=== PATIENT | male | born 1960 | race Caucasian/White ===

== ENCOUNTER → 2018-05-16 13:58 | Outpatient (POV) | payer OTHER, SELFPAY | PROVIDERS: Visit Provider Nurse Practitioner Acute Care | DX: Z00.00 Encounter for general adult medical examination without abnormal findings (principal) ==

== ENCOUNTER → 2018-08-15 10:40 | Outpatient (POV) | payer BC, SELFPAY | PROVIDERS: Visit Provider Nurse Practitioner Acute Care | DX: Z00.00 Encounter for general adult medical examination without abnormal findings (principal) ==

== ENCOUNTER → 2019-04-17 12:25 | Outpatient (CLI) | payer BC, SELFPAY ==
--- NOTE | 2019-04-17 | CA_ITS ---
APPROVED REPORT Exam: Exercise Treadmill Technologist: Shellie Lopez Ht: 6 ft 0 in Wt: 150 lbs BSA: 1.88 m2 HR: 65 bpm BP: 145/89 mmHg Indications: CP, SOA Medical History Medications: Levothyroxine,,,,, Metoprolol,,,,, CitruCEL,,,,, Allergies: NSAID, Pseudophedrine, Joann Cardiac Risk Factors: HTN Stress Test Details Test: Tito HR Resting HR: 78 bpm Max Heart Rate (APMHR): 159 bpm Max HR Achieved: 156 bpm Target HR (85% APMHR): 135 bpm % of APMHR: 98 Recovery HR: 102 bpm BP Resting BP: 145/89 mmHg Max BP: 168/80 mmHg Recovery BP: 158.0/69.0 mmHg BP response to stress: Normal blood pressure response to stress. ECG Resting ECG: Sinus Rhythm Clinical Reason for Termination: Leg fatigue Stress Symptoms: Leg Fatigue Exercise duration: 09:44 min Highest Stage Achieved: Stage 3: 3.4 mph at 14% grade. Exercise capacity: 10.1 METs Stress ECG Conclusion Tito Protocol Portion completed. Exercised for 09:44. Stopped for leg fatigue. Stress Echocardiagram. Symptoms: No CP, or SOB. Leg fatigue during peak exercise. Arrhythmias/Ectopy: Occ PVC, Occ PAC, and 3 beat run of Atrial Tach. ST-T Changes: Less than 1.5mm ST Depression. No images. 1) Stress Echo 2) Good exercise capacity 3)Apporiate BP response 4) Occ PVC, Occ PAC, and 3 beat AT. Test Summary REST . . . . . . . Standing REST . . . . . . . Sitting REST 13:40 0.0 0.0 78 . 145/ 89 . . Stage 1 01:00 10.0 1.7 89 . . . . Stage 1 02:00 10.0 1.7 96 . . . . Stage 1 03:00 10.0 1.7 100 . 164/ 88 . . Stage 2 01:00 12.0 2.5 108 . . . . Stage 2 02:00 12.0 2.5 114 . . . . Stage 2 03:00 12.0 2.5 120 . 156/ 80 . . Stage 3 01:00 14.0 3.4 129 . . . . Stage 3 02:00 14.0 3.4 141 . . . . Stage 3 03:00 14.0 3.4 148 . . . . Stage 4 00:44 16.0 0.0 155 . 168/ 80 . Stop exercise at 09:44 RECOVERY 01:00 0.0 0.0 124 . . . . RECOVERY 02:00 0.0 0.0 107 . . . . RECOVERY 03:00 0.0 0.0 101 . 158/ 69 . . RECOVERY 04:00 0.0 0.0 96 . 158/ 69 . . RECOVERY 05:00 0.0 0.0 97 . 154/ 67 . . RECOVERY 06:00 0.0 0.0 100 . 154/ 67 . . RECOVERY 07:00 0.0 0.0 95 . 134/ 84 . . RECOVERY 07:26 0.0 0.0 95 . 134/ 84 . . Electronically signed by : Dennis Rai, 04/19/2019 05:55:27
--- NOTE | 2019-04-17 12:32 | CA_ITS ---
APPROVED REPORT EXAM: Comprehensive 2D, Doppler, and color-flow Echocardiogram Geological Technical Officer: Nisha Crawford RDCS Ht: 6 ft 0 in Wt: 150lbs BSA: 1.88 BP: 158/85 mmHg Indications: Shortness of Breath R06.02, Chest Pain R07.89 STRESS ECHO Echo Findings The Pre-Stress Echocardiogram showed normal left ventricular contractility with an estimated Ejection Fraction of about 50-55%. The Post-Stress Echocardiogram showed normal left ventricular contractility with an estimated Ejection Fraction of about 65-70%. Conclusion 1. The EKG portion of the exercise stress echo is negative for ischemia. 2. No echocardiographic evidence of segmental wall motion abnormality with exercise to suggest underlying ischemic heart disease. 3. Preserved left ventricular systolic function.
== END ==
PROVIDERS: PCP Internal Medicine; Visit Provider Urology
DX: R06.09 Other forms of dyspnea; R07.89 Other chest pain; R00.2 Palpitations; E89.0 Postprocedural hypothyroidism; G47.9 Sleep disorder, unspecified; R40.0 Somnolence
CPT/HCPCS: 93017; 93350

== ENCOUNTER → 2019-04-20 11:42 | Outpatient (CLI) | payer BC, SELFPAY | PROVIDERS: PCP Family Medicine; Visit Provider Internal Medicine Cardiovascular Disease | DX: R00.2 Palpitations (principal) | CPT/HCPCS: 93270 ==

== ENCOUNTER → 2020-03-25 10:06 | Outpatient (POV) | payer BC, SELFPAY | PROVIDERS: Visit Provider Nurse Practitioner Family | DX: Z00.00 Encounter for general adult medical examination without abnormal findings (principal) ==

== ENCOUNTER → 2020-04-02 15:22 | Outpatient (POV) | payer BC, SELFPAY | PROVIDERS: Visit Provider Dermatology | DX: Z00.00 Encounter for general adult medical examination without abnormal findings (principal) ==

== ENCOUNTER 2020-05-28 11:43 | Emergency (ER) | payer BC, SELFPAY ==
[2020-05-28] VITALS (8 sets, daily range): BP systolic 122–142; BP diastolic 80–90; PULSE 74–87; RESP 16; TEMP 36.9; O2SAT 97–100; BMI 20.3
--- NOTE | 2020-05-28 11:40 | ECG_ITS ---
APPROVED REPORT Exam: Resting ECG HR:85 bpm ECG Measurements Heart Rate 85 AXES [place] 128 P 81 QRSd 88 QRS 81 QT 360 T 61 QTc 428 Conclusion Normal sinus rhythm with sinus arrhythmia Possible Left atrial enlargement Borderline ECG Electronically signed by : Nacho Draper, 05/29/2020 11:57:55
--- NOTE | 2020-05-28 11:47 | HMH.EDGENADL ---
ED Disposition Clinical Impression: Chest pain Qualifiers: Chest pain type: unspecified Qualified Code(s): R07.9 - Chest pain, unspecified Disposition: Home, Self-Care Condition on Discharge: Good Instructions: DI for Atypical Chest Pain Additional Instructions: Please report tomorrow to cardiology office to be worked into the schedule. Show up at 9 AM and you will be seen at some point throughout the morning/afternoon. Immediately report back to our emergency department if recurrent symptoms prior to that time. Take Atarax as prescribed. Prescriptions: hydrOXYzine HCL [Hydroxyzine HCl] 10 mg PO BID PRN 7 Days #14 tab PRN Reason: Anxiety Prescription Printed Referrals: Nacho Davidson MD [Primary Care Provider] - Navjot Farrell MD [Staff Physician] - - Critical Care Critical Care Time: No Attestation: On , the high probability of a clinically significant, sudden or life threatening deterioration of the following system(s) required my full and direct attention, intervention and personal management. The time I documented below is in addition to time spent performing reported procedures but includes the following listed in this critical care notation. Medical Decision Making - Medical Records Medical records reviewed: Yes: I reviewed the patient's medical records. - Ran Inquiry Pt receiving controlled substance: No Vital Signs: 05/28/20 11:44 05/28/20 12:11 05/28/20 12:30 Temperature 98.5 F Temperature Source Oral Pulse Rate [Right] 76 81 80 Respiratory Rate 16 Blood Pressure [Right Arm] 135/88 136/90 142/90 H Blood Pressure Mean [Right Arm] 103 105 107 Blood Pressure Source [Right Arm] Automatic Cuff Automatic Cuff Automatic Cuff Blood Pressure Position [Right Arm] Sitting Sitting Sitting 02 Sat by Pulse Oximetry 98 100 97 Oxygen Delivery Method Room Air Room Air Room Air 05/28/20 13:07 05/28/20 14:10 05/28/20 15:33 Temperature Temperature Source Pulse Rate [Right] 85 74 83 Respiratory Rate Blood Pressure [Right Arm] 137/87 122/89 124/86 Blood Pressure Mean [Right Arm] 103 100 98 Blood Pressure Source [Right Arm] Automatic Cuff Automatic Cuff Automatic Cuff Blood Pressure Position [Right Arm] Sitting Sitting Sitting 02 Sat by Pulse Oximetry 99 98 98 Oxygen Delivery Method Room Air Room Air Room Air - Lab Data Lab Results 05/28/20 11:50: WBC 6.1, RBC 5.03, Hgb 16.4, Hct 46.7, MCV 92.9, MCH 32.6 H, MCHC 35.1, RDW 13.3, Plt Count 183, MPV 8.5, Neut % (Auto) 70.2, Lymph % (Auto) 20.9, Zavala % (Auto) 8.2, Eos % (Auto) 0.4, Baso % (Auto) 0.4, Neut # (Auto) 4.3, Lymph # (Auto) 1.3, Zavala # (Auto) 0.5, Eos # (Auto) 0.0, Baso # (Auto) 0.0 05/28/20 11:50: Sodium 140, Potassium 3.9, Chloride 99, Carbon Dioxide 34 H, Anion Gap 10.9, BUN 15, Creatinine 1.00, Estimated Creat Clear 74, Estimated GFR 76, Est GFR ( Amer) 92, Glucose 108 H, Calcium 9.0, Troponin I < 0.01 05/28/20 11:50: Lipase 36 05/28/20 15:20: Troponin I < 0.01 Result diagrams: 05/28/20 11:50 05/28/20 11:50 Orders (Tests/Meds): ORDERS Category Date Time Status Troponin I Q3H Lab 05/28/20 18:30 Ordered - ECG Data Tracing #1 I reviewed this ECG and interpreted as documented below: EKG demonstrates sinus rhythm at a rate of 85 bpm; no acute ST elevation/depression; axis normal Medical Decision Narrative: Patient presents to the emergency department with chest pain. EKG obtained immediately upon arrival demonstrates no acute ST elevation/depression. Low suspicion for ACS but on the differential so cardiac enzyme testing will be obtained. Other differential diagnoses do include pancreatitis versus anemia versus anxiety versus costochondritis versus diffuse esophageal spasm. Lipase will be obtained for further work-up of pancreatitis with basic lab work to ensure no hematologic or metabolic disturbance. Chest x-ray will also be obtained to ensure no acute cardiopulmonary abnormality. Patient
--- NOTE | 2020-05-28 12:15 | XR_ITS ---
PROCEDURE: XR CHEST PORTABLE CLINICAL HISTORY: chest pain COMPARISON: No exams were available for comparison FINDINGS: The cardiomediastinal silhouette and pulmonary vascularity are within normal limits. The lungs are clear without infiltrates, suspicious nodules, or pleural effusions. There are mild degenerative changes of the shoulders. There is evidence of old granulomatous disease IMPRESSION: No acute findings. Dictated by: Smith Sosa MD 05/28/2020 12:45 Smith Sosa MD in [place] 05/28/2020 12:45
[2020-05-28 12:24] LABS: Chloride 99 mmol/L (98-107); Sodium 140 mmol/L (136-145)
[2020-05-28 12:25] LABS: Potassium 3.9 mmoL/L (3.5-5.1)
[2020-05-28 12:26] LABS: Basophils % 0.4 % (0.1-2.0); Eosinophils % 0.4 % (0.1-12.0); Hematocrit 46.7 % (42.0-52.0); Hemoglobin 16.4 g/dL (14.1-18.0); Lymphocytes # 1.3 K/mm3 (0.7-4.5); Lymphocytes % 20.9 % (10-50); Mean Corpuscular HGB Conc 35.1 g/dL (31.8-35.4); Mean Corpuscular Hemoglobin 32.6 pg (27.0-31.2); Mean Corpuscular Volume 92.9 fl (80-94); Mean Platelet Volume 8.5 fl (7.4-10.4); Monocytes # 0.5 K/mm3 (0.1-1.0); Monocytes % 8.2 % (1.7-9.3); Neutrophils # 4.3 K/mm3 (1.8-7.8); Neutrophils % 70.2 % (37.0-80.0); Platelet Count 183 K/mm3 (142-424); Red Blood Count 5.03 M/mm3 (4.60-6.20); Red Cell Distribution Width 13.3 % (11.5-17.5); White Blood Count 6.1 K/mm3 (4.8-10.8)
[2020-05-28 12:27] LABS: Blood Urea Nitrogen 15 mg/dl (9-20); Creatinine Clearance Estimated 74 mL/min (50-200); Estimated Glomerular Filt Rate 76 ml/min (>60); GFR (African American) 92 ML/MIN (>60); Lipase 36 U/L (23-300)
[2020-05-28 12:28] LABS: Anion Gap 10.9 mEq/L (5-15); Carbon Dioxide 34 mmol/L (22.0-30.0); Glucose 108 mg/dl (74-100)
[2020-05-28 12:43] LABS: Troponin I < 0.01 ng/ml (0.00-0.034)
[2020-05-28 15:55] LABS: Troponin I < 0.01 ng/ml (0.00-0.034)
== END 2020-05-28 16:38 | disposition home or self-care (01) ==
PROVIDERS: Emergency Provider Emergency Medicine; PCP Family Medicine
DX: R07.9 Chest pain, unspecified (principal); I10 Essential (primary) hypertension; F41.9 Anxiety disorder, unspecified; E78.5 Hyperlipidemia, unspecified; Z88.6 Allergy status to analgesic agent; Z79.899 Other long term (current) drug therapy
CPT/HCPCS: 36415; 71045; 80048; 83690; 84484; 85025; 93005; 99283

== ENCOUNTER → 2020-06-15 12:59 | Outpatient (CLI) | payer BC, SELFPAY ==
[2020-06-15 13:31] LABS: Basophils % 0.6 % (0.1-2.0); Eosinophils # 0.1 K/mm3 (0.0-0.4); Eosinophils % 0.8 % (0.1-12.0); Hematocrit 50.8 % (42.0-52.0); Hemoglobin 16.8 g/dL (14.1-18.0); Lymphocytes # 1.3 K/mm3 (0.7-4.5); Lymphocytes % 19.7 % (10-50); Mean Corpuscular HGB Conc 33.1 g/dL (31.8-35.4); Mean Corpuscular Hemoglobin 31.6 pg (27.0-31.2); Mean Corpuscular Volume 95.6 fl (80-94); Mean Platelet Volume 8.5 fl (7.4-10.4); Monocytes # 0.5 K/mm3 (0.1-1.0); Monocytes % 7.3 % (1.7-9.3); Neutrophils # 4.6 K/mm3 (1.8-7.8); Neutrophils % 71.6 % (37.0-80.0); Platelet Count 214 K/mm3 (142-424); Red Blood Count 5.32 M/mm3 (4.60-6.20); Red Cell Distribution Width 13.2 % (11.5-17.5); White Blood Count 6.4 K/mm3 (4.8-10.8)
[2020-06-15 13:45] LABS: Anion Gap 13.1 mEq/L (5-15); Blood Urea Nitrogen 15 mg/dl (9-20); Calcium 9.4 mg/dl (8.4-10.2); Carbon Dioxide 35 mmol/L (22.0-30.0); Chloride 97 mmol/L (98-107); Estimated Glomerular Filt Rate 68 ml/min (>60); GFR (African American) 82 ML/MIN (>60); Glucose 133 mg/dl (74-100); Potassium 5.1 mmoL/L (3.5-5.1); Sodium 140 mmol/L (136-145)
[2020-06-15 14:29] LABS: Coronavirus 19 IgG Antibody Negative (Negative); Coronavirus 19 IgM Antibody Negative (Negative)
== END ==
PROVIDERS: Visit Provider Nurse Practitioner Family
DX: Z01.810 Encounter for preprocedural cardiovascular examination (principal); Z11.52 Encounter for screening for COVID-19; R06.00 Dyspnea, unspecified; I20.8 Other forms of angina pectoris; R00.2 Palpitations; E89.0 Postprocedural hypothyroidism; R00.0 Tachycardia, unspecified; R94.31 Abnormal electrocardiogram [ECG] [EKG]; Z82.49 Family history of ischemic heart disease and other diseases of the circulatory system
CPT/HCPCS: 36415; 80048; 85025; 86328

== ENCOUNTER 2020-06-17 08:48 | Day surgery (SDC) | payer BC, SELFPAY ==
[2020-06-17] VITALS (11 sets, daily range): BP systolic 95–160; BP diastolic 59–100; PULSE 64–100; RESP 16–20; TEMP 36.6; O2SAT 95–100; BMI 20.9
--- NOTE | 2020-06-17 07:13 | IR_ITS ---
APPROVED REPORT Patient Location: Outpatient PROCEDURES Left heart catheterization Left ventriculogram Selective coronary angiogram INDICATION Coronary artery disease, Severe CAD based on CAT scan, Atypical angina pectoris Informed consent was obtained prior to the procedure. COMPLICATIONS NONE Estimated Blood Loss: LESS THAN 10 ML TECHNIQUE One percent lidocaine used to anesthetize the right anterior aspect of the wrist. The right radial artery was accessed via the Seldinger technique. A 6 Erit[place]an sheath was placed in the right radial artery. 2.5 mg of verapamil, 800 mcg of nitroglycerin, 1mg Lidocaine and 5000 U Heparin were given through the arterial sheath. The trap catheter was also used to perform left heart catheterization, left ventriculogram and selective coronary angiogram. At the end of the procedure the sheath was removed good hemostasis was achieved using Traclet band, patient was transferred to the postop holding area in stable condition. ANGIOGRAPHIC RESULTS The left main artery Has an ostial smooth eccentric 20% stenosis The left anterior descending artery Is proximally normal and normal throughout its mid and distal segment. Interestingly the distal segment is narrow and smaller than normal however no evidence of atherosclerotic plaque. A large 2.5 mm first diagonal artery has a proximal 60 to 70% stenosis with the stenosis extending back to the origin of the first diagonal artery adjacent to the LAD The circumflex artery Is large dominant normal The right coronary artery Small nondominant normal The PAULSON ventriculogram reveals Normal to slightly hyperdynamic at 70 to 75% The left ventricular end-diastolic pressure 15 mmHg IMPRESSION Mild left main coronary disease Moderate to severe branch disease and a 2.5 mm first diagonal artery with a disease extending back into the ostium of the vessel Normal LAD proper as described above Normal dominant circumflex artery as described above Slightly hyperdynamic ventricle Slightly elevated LVEDP PLAN 1. I strongly recommend medical management 2. Stenting the first diagonal artery would almost certainly require stenting a normal proximal LAD. Branch disease is best managed medically unless recalcitrant angina occurs. 3. If patient continues to experience angina this almost certainly stems from hyperdynamic ventricle. 4. Recommend LDL less than 55 5. Aggressive risk factor modification 6. Avoidance of tobacco products Electronically signed by : Navjot Farrell, 06/17/2020 11:52:51
[2020-08-26 13:47] LABS: CATHL Activated Clotting Time 306 SEC (74-125)
== END 2020-06-17 15:05 | disposition home or self-care (01) ==
PROVIDERS: PCP Family Medicine; Visit Provider Internal Medicine
DX: I25.118 Atherosclerotic heart disease of native coronary artery with other forms of angina pectoris (principal); I10 Essential (primary) hypertension; R00.0 Tachycardia, unspecified; R94.31 Abnormal electrocardiogram [ECG] [EKG]; E03.9 Hypothyroidism, unspecified; Z82.49 Family history of ischemic heart disease and other diseases of the circulatory system; Z79.899 Other long term (current) drug therapy
CPT/HCPCS: 85347; 93458; 99152; C1725; C1769; J1644; Q9967

== ENCOUNTER 2020-07-19 15:20 | Outpatient (RCR) | payer BC, SELFPAY | END 2020-12-20 11:17 | disposition home or self-care (01) | LOC: PT 15:20 | PROVIDERS: Visit Provider Physician Assistant | DX: I25.10 Atherosclerotic heart disease of native coronary artery without angina pectoris (principal); R06.00 Dyspnea, unspecified; R00.2 Palpitations; E78.5 Hyperlipidemia, unspecified | CPT/HCPCS: 93798 ==

== ENCOUNTER → 2020-09-23 08:14 | Outpatient (POV) | payer BC, SELFPAY | PROVIDERS: Visit Provider Nurse Practitioner Family | DX: Z00.00 Encounter for general adult medical examination without abnormal findings (principal) ==

== ENCOUNTER → 2020-10-10 07:25 | Outpatient (CLI) | payer BC, SELFPAY ==
[2020-10-10 08:03] LABS: Alanine Aminotransferase 43 U/L (12-78); Albumin Level 4.8 g/dl (3.5-5.0); Alkaline Phosphatase 91 U/L (38-126); Aspartate Amino Transferase 40 U/L (17-59); Bilirubin,Indirect 0.7 mg/dL (0.0-0.9); Bilirubin,Total 0.7 mg/dl (0.2-1.3); Bilirubin,Unconjugated 0.7 mg/dL (0.0-1.1); Chol/HDL Ratio 2.8 (1-3.5); Cholesterol 150 mg/dl (140-200); HDL Cholesterol 54 mg/dl (40-60); Total Protein,Serum 7.5 g/dl (6.3-8.2); Triglycerides 63 mg/dl (30-150); VLDL Cholesterol 13 mg/dL (0-40)
[2020-10-10 08:15] LABS: Direct LDL Cholesterol 79.92 mg/dL (100-129)
== END ==
PROVIDERS: Visit Provider Physician Assistant
DX: E78.2 Mixed hyperlipidemia (principal); I25.118 Atherosclerotic heart disease of native coronary artery with other forms of angina pectoris; R00.2 Palpitations
CPT/HCPCS: 36415; 80061; 80076

== ENCOUNTER → 2020-12-17 07:01 | Outpatient (CLI) | payer BC, SELFPAY ==
[2020-12-17 08:29] LABS: Alanine Aminotransferase 35 U/L (12-78); Albumin Level 4.4 g/dl (3.5-5.0); Alkaline Phosphatase 87 U/L (38-126); Aspartate Amino Transferase 36 U/L (17-59); Bilirubin,Direct 0.3 mg/dl (0.0-0.4); Bilirubin,Indirect 0.3 mg/dL (0.0-0.9); Bilirubin,Total 0.6 mg/dl (0.2-1.3); Bilirubin,Unconjugated 0.3 mg/dL (0.0-1.1); Chol/HDL Ratio 3.1 (1-3.5); Cholesterol 141 mg/dl (140-200); HDL Cholesterol 45 mg/dl (40-60); Total Protein,Serum 7.2 g/dl (6.3-8.2); Triglycerides 163 mg/dl (30-150); VLDL Cholesterol 33 mg/dL (0-40)
[2020-12-17 08:40] LABS: Direct LDL Cholesterol 66.05 mg/dL (100-129)
== END ==
PROVIDERS: Visit Provider Physician Assistant
DX: R06.00 Dyspnea, unspecified (principal); I20.8 Other forms of angina pectoris; R00.2 Palpitations; R00.0 Tachycardia, unspecified; E78.5 Hyperlipidemia, unspecified; E89.0 Postprocedural hypothyroidism
CPT/HCPCS: 36415; 80061; 80076

== ENCOUNTER → 2020-12-30 15:12 | Outpatient (POV) | payer BC, SELFPAY | PROVIDERS: Visit Provider Nurse Practitioner Family | DX: Z00.00 Encounter for general adult medical examination without abnormal findings (principal) ==

== ENCOUNTER → 2021-06-27 15:29 | Outpatient (CLI) | payer BC, SELFPAY | PROVIDERS: Visit Provider Nurse Practitioner | DX: U07.1 COVID-19 (principal) | CPT/HCPCS: C9803; U0003; U0005 ==

== ENCOUNTER → 2021-10-04 07:59 | Outpatient (CLI) | payer BC, SELFPAY ==
[2021-10-04 08:33] LABS: Basophils % 0.9 % (0.1-2.0); Eosinophils # 0.1 K/mm3 (0.0-0.4); Hematocrit 44.1 % (42.0-52.0); Hemoglobin 14.6 g/dL (14.1-18.0); Lymphocytes # 1.1 K/mm3 (0.7-4.5); Lymphocytes % 23.6 % (10-50); Mean Corpuscular HGB Conc 33.1 g/dL (31.8-35.4); Mean Corpuscular Hemoglobin 31.8 pg (27.0-31.2); Mean Corpuscular Volume 96.2 fl (80-94); Mean Platelet Volume 9.9 fl (7.4-10.4); Monocytes # 0.4 K/mm3 (0.1-1.0); Monocytes % 7.5 % (1.7-9.3); Neutrophils # 3.2 K/mm3 (1.8-7.8); Platelet Count 168 K/mm3 (142-424); Red Blood Count 4.59 M/mm3 (4.60-6.20); Red Cell Distribution Width 13.7 % (11.5-17.5); White Blood Count 4.8 K/mm3 (4.8-10.8)
[2021-10-04 08:41] LABS: Chloride 103 mmol/L (98-107)
[2021-10-04 08:42] LABS: Potassium 4.6 mmoL/L (3.5-5.1); Sodium 140 mmol/L (136-145)
[2021-10-04 08:44] LABS: Alanine Aminotransferase 40 U/L (12-78); Alkaline Phosphatase 92 U/L (38-126); Anion Gap 7.6 mEq/L (5-15); Aspartate Amino Transferase 41 U/L (17-59); Bilirubin,Indirect 0.7 mg/dL (0.0-0.9); Bilirubin,Total 0.7 mg/dl (0.2-1.3); Bilirubin,Unconjugated 0.7 mg/dL (0.0-1.1); Blood Urea Nitrogen 14 mg/dl (9-20); Carbon Dioxide 34 mmol/L (22.0-30.0); Cholesterol 154 mg/dl (140-200); Estimated Glomerular Filt Rate 75 ml/min (>60); GFR (African American) 91 ML/MIN (>60); Triglycerides 63 mg/dl (30-150); VLDL Cholesterol 13 mg/dL (0-40)
[2021-10-04 08:45] LABS: Albumin Level 4.3 g/dl (3.5-5.0); Calcium 8.3 mg/dl (8.4-10.2); Chol/HDL Ratio 2.7 (1-3.5); Glucose 98 mg/dl (74-100); HDL Cholesterol 58 mg/dl (40-60)
[2021-10-04 08:56] LABS: Direct LDL Cholesterol 77.03 mg/dL (100-129)
== END ==
PROVIDERS: Visit Provider Physician Assistant
DX: I25.118 Atherosclerotic heart disease of native coronary artery with other forms of angina pectoris (principal); E78.2 Mixed hyperlipidemia; E89.0 Postprocedural hypothyroidism; R94.31 Abnormal electrocardiogram [ECG] [EKG]
CPT/HCPCS: 36415; 80048; 80061; 80076; 85025

== ENCOUNTER → 2021-10-07 15:16 | Outpatient (CLI) | payer BC, SELFPAY ==
[2021-10-07 17:37] LABS: Vitamin B12 204 pg/mL (239-931)
[2021-10-07 17:39] LABS: Folate 6.79 ng/mL
== END ==
PROVIDERS: Visit Provider Physician Assistant
DX: R06.00 Dyspnea, unspecified (principal); I20.8 Other forms of angina pectoris; R00.0 Tachycardia, unspecified; R00.2 Palpitations; E78.5 Hyperlipidemia, unspecified; E89.0 Postprocedural hypothyroidism
CPT/HCPCS: 36415; 82607; 82746

== ENCOUNTER → 2022-04-18 08:01 | Outpatient (CLI) | payer BC, SELFPAY ==
[2022-04-18 08:59] LABS: Alanine Aminotransferase 39 U/L (12-78); Albumin Level 4.7 g/dl (3.5-5.0); Alkaline Phosphatase 114 U/L (38-126); Aspartate Amino Transferase 38 U/L (17-59); Bilirubin,Indirect 0.6 mg/dL (0.0-0.9); Bilirubin,Total 0.6 mg/dl (0.2-1.3); Bilirubin,Unconjugated 0.6 mg/dL (0.0-1.1); Chol/HDL Ratio 2.9 (1-3.5); Cholesterol 171 mg/dl (140-200); HDL Cholesterol 58 mg/dl (40-60); Total Protein,Serum 7.6 g/dl (6.3-8.2); Triglycerides 84 mg/dl (30-150); VLDL Cholesterol 17 mg/dL (0-40)
[2022-04-18 09:16] LABS: Direct LDL Cholesterol 87.77 mg/dL (100-129)
== END ==
PROVIDERS: PCP Internal Medicine; Visit Provider Internal Medicine
DX: I25.118 Atherosclerotic heart disease of native coronary artery with other forms of angina pectoris (principal); I10 Essential (primary) hypertension; E78.2 Mixed hyperlipidemia
CPT/HCPCS: 36415; 80061; 80076

== ENCOUNTER → 2022-05-12 10:44 | Outpatient (POV) | payer BC, SELFPAY | PROVIDERS: Visit Provider Dermatology | DX: Z00.00 Encounter for general adult medical examination without abnormal findings (principal) ==

== ENCOUNTER 2022-05-28 16:49 | Emergency (ER) | payer BC, SELFPAY ==
--- NOTE | 2022-05-28 17:38 | EXP.UTC ---
Discharge Plan Disposition Patient Disposition: Home, Self-Care Condition: Good Prescriptions Prescriptions: No Action levothyroxine 125 mcg capsule 125 mcg PO DAILY budesonide 3 mg capsule,delayed,extend.release 3 mg PO DAILY metoprolol succinate 50 mg tablet extended release 24 hr See Rx Instructions .ROUTE .COMPLEX Qty: 90 1RF Dose Instruction: Take 1 tablet by mouth once daily Rx Instructions: Take 1 tablet by mouth once daily amlodipine 5 mg tablet 5 mg PO DAILY lisinopril 40 mg tablet 40 mg PO DAILY Zypitamag 4 mg tablet 4 mg PO DAILY Qty: 90 3RF aspirin 81 mg tablet,delayed release (DR/EC) 81 mg PO DAILY Qty: 90 3RF B12 Active 1,000 mcg tablet,chewable 1,000 mcg PO DAILY Qty: 30 5RF nitroglycerin 0.4 mg tablet, sublingual 0.4 mg SUBLINGUAL Q5M Qty: 25 0RF Rx Instructions: do not exceed 3 doses per episode methylcellulose (with sugar) 850 GM powder 850 g PO DAILY Referrals Follow up/Referrals: Fabienne Healy APRN [Primary Care Provider] - See instructions Activity Restrictions/Add. Instructions Additional Instructions/Restrictions: Drink plenty of fluids. Take tylenol for pain or fever. Return if you begin to have difficulty breathing. Follow up with your regular doctor. GO TO THE ER FOR ANY WORSENING SYMPTOMS Clinical Impressions Clinical Impression: Acute viral syndrome Instructions Patient Instructions: Coronavirus Disease 2019, Preventing the Spread of Coronavirus Discharge Instructions Discharge ED Provider: Michael Tovar [facility] General Stated complaint: home test covid + Time Seen by Provider: 05/28/22 17:38 History of Present Illness Provider Complaint: He states that he has had some mild sinus congestion, mild body aches and a head ache since yesterday. He took a home covid-19 test today and it was positive. He came here to have this confirmed. He denies any shortness of breath. Related Data Home Medications Medication Instructions Recorded Confirmed methylcellulose (with sugar) oral 850 g PO DAILY fiber supplement 06/21/18 04/22/22 powder budesonide 3 mg 3 mg PO DAILY 07/19/20 04/22/22 capsule,delayed,extended release levothyroxine 125 mcg capsule 125 mcg PO DAILY 07/19/20 04/22/22 amlodipine 5 mg tablet 5 mg PO DAILY 04/22/22 04/22/22 lisinopril 40 mg tablet 40 mg PO DAILY 04/22/22 04/22/22 Previous Rx's Medication Instructions Recorded metoprolol succinate 50 mg See Rx Instructions .Route 04/15/21 tablet,extended release 24 hr .COMPLEX #90 tabs mecobalamin (vitamin B12) 1,000 1,000 mcg PO DAILY #30 tabs 10/08/21 mcg chewable tablet (B12 Active) nitroglycerin 0.4 mg sublingual 0.4 mg sublingual Q5M #25 tabs 02/20/22 tablet aspirin 81 mg tablet,delayed 81 mg PO DAILY #90 tabs 04/22/22 release pitavastatin magnesium 4 mg tablet 4 mg PO DAILY #90 tabs 04/22/22 Allergies Allergy/AdvReac Type Severity Reaction Status Date / Time atorvastatin Allergy Mild Verified 04/22/22 13:39 fexofenadine [From ROSALIND-D] Allergy Unknown Verified 04/22/22 13:39 NSAIDS (Non-Steroidal Allergy Unknown Verified 04/22/22 13:39 Anti-Inflamma [NSAIDS (NON-STEROIDAL ANTI-INFLAMMA] pseudoephedrine Allergy Unknown Verified 04/22/22 13:39 [From ROSALIND-D] rosuvastatin AdvReac Intermediate bladder Verified 04/22/22 13:39 problems PFSH [facility] Disclaimer: The information contained in this section may have been updated after the patient was seen, as this information can be updated by other users. Medical History Abnormal CT of the chest Atypical angina B12 deficiency Chest pain Coronary atherosclerosis Daytime somnolence Dyspnea HLD (hyperlipidemia) Palpitations Restless sleeper Sinus tachycardia Surgical History Hx of total thyroidectomy Soci
[2022-05-28 17:50] VITALS: BP 134/76; PULSE 78; RESP 21; TEMP 37.1; O2SAT 97; BMI 20.7
[2022-05-28 18:18] VITALS: BP 134/76; PULSE 78; RESP 21; TEMP 37.1; O2SAT 97
== END 2022-05-28 18:26 | disposition home or self-care (01) ==
PROVIDERS: Emergency Provider Nurse Practitioner Family; PCP Nurse Practitioner Family
DX: U07.1 COVID-19 (principal)
CPT/HCPCS: 99212; C9803; G0463; U0003; U0005

== ENCOUNTER → 2022-07-25 08:04 | Outpatient (CLI) | payer BC, SELFPAY ==
[2022-07-25 09:55] LABS: Basophils % 0.9 % (0.1-2.0); Eosinophils # 0.1 K/mm3 (0.0-0.4); Eosinophils % 2.3 % (0.1-12.0); Hematocrit 46.1 % (42.0-52.0); Hemoglobin 15.1 g/dL (14.1-18.0); Lymphocytes # 1.1 K/mm3 (0.7-4.5); Lymphocytes % 24.8 % (10-50); Mean Corpuscular HGB Conc 32.7 g/dL (31.8-35.4); Mean Corpuscular Hemoglobin 30.6 pg (27.0-31.2); Mean Corpuscular Volume 93.6 fl (80-94); Mean Platelet Volume 9.7 fl (7.4-10.4); Monocytes # 0.4 K/mm3 (0.1-1.0); Monocytes % 7.8 % (1.7-9.3); Neutrophils # 2.9 K/mm3 (1.8-7.8); Neutrophils % 64.2 % (37.0-80.0); Platelet Count 165 K/mm3 (142-424); Red Blood Count 4.93 M/mm3 (4.60-6.20); Red Cell Distribution Width 13.4 % (11.5-17.5); White Blood Count 4.6 K/mm3 (4.8-10.8)
[2022-07-25 10:20] LABS: Alanine Aminotransferase 36 U/L (12-78); Albumin Level 4.6 g/dl (3.5-5.0); Alkaline Phosphatase 89 U/L (38-126); Anion Gap 8.7 mEq/L (5-15); Aspartate Amino Transferase 36 U/L (17-59); Bilirubin,Direct 0.1 mg/dl (0.0-0.4); Bilirubin,Indirect 0.5 mg/dL (0.0-0.9); Bilirubin,Total 0.6 mg/dl (0.2-1.3); Bilirubin,Unconjugated 0.5 mg/dL (0.0-1.1); Blood Urea Nitrogen 13 mg/dl (9-20); Calcium 8.6 mg/dl (8.4-10.2); Carbon Dioxide 35 mmol/L (22.0-30.0); Chloride 103 mmol/L (98-107); Chol/HDL Ratio 2.5 (1-3.5); Cholesterol 136 mg/dl (140-200); Estimated Glomerular Filt Rate 67 ml/min (>60); GFR (African American) 82 ML/MIN (>60); Glucose 91 mg/dl (74-100); HDL Cholesterol 55 mg/dl (40-60); Potassium 4.7 mmoL/L (3.5-5.1); Sodium 142 mmol/L (136-145); Total Protein,Serum 7.6 g/dl (6.3-8.2); Triglycerides 71 mg/dl (30-150); VLDL Cholesterol 14 mg/dL (0-40)
[2022-07-25 10:31] LABS: Direct LDL Cholesterol 66.99 mg/dL (100-129)
[2022-07-25 10:32] LABS: Free T4 (Free Thyroxine) 1.26 ng/dl (0.78-2.19)
[2022-07-25 10:47] LABS: Thyroid Stimulating Hormone 0.04 uIU/mL (0.465-4.68)
[2022-07-25 11:06] LABS: Vitamin B12 769 pg/mL (239-931)
== END ==
PROVIDERS: Visit Provider Physician Assistant
DX: I25.118 Atherosclerotic heart disease of native coronary artery with other forms of angina pectoris (principal); R00.2 Palpitations; I10 Essential (primary) hypertension; E78.2 Mixed hyperlipidemia; E53.8 Deficiency of other specified B group vitamins
CPT/HCPCS: 36415; 80048; 80061; 80076; 82607; 83735; 84439; 84443; 85025

== ENCOUNTER 2023-10-23 07:58 | Outpatient (CLI) | payer MEDICARE, SELFPAY ==
[2023-10-23 09:02] LABS: Basophils % 0.6 % (0.1-2.0); Eosinophils # 0.1 K/mm3 (0.0-0.4); Eosinophils % 1.6 % (0.1-12.0); Hematocrit 45.4 % (42.0-52.0); Hemoglobin 14.6 g/dL (14.1-18.0); Lymphocytes # 1.4 K/mm3 (0.7-4.5); Mean Corpuscular HGB Conc 32.3 g/dL (31.8-35.4); Mean Corpuscular Hemoglobin 31.4 pg (27.0-31.2); Mean Corpuscular Volume 97.2 fl (80-94); Mean Platelet Volume 9.6 fl (7.4-10.4); Monocytes # 0.5 K/mm3 (0.1-1.0); Monocytes % 8.9 % (1.7-9.3); Neutrophils # 3.5 K/mm3 (1.8-7.8); Platelet Count 146 K/mm3 (142-424); Red Blood Count 4.67 M/mm3 (4.60-6.20); Red Cell Distribution Width 13.8 % (11.5-17.5); White Blood Count 5.5 K/mm3 (4.8-10.8)
[2023-10-23 11:13] LABS: Chloride 101 mmol/L (98-107)
[2023-10-23 11:14] LABS: Potassium 4.4 mmoL/L (3.5-5.1); Sodium 140 mmol/L (136-145)
[2023-10-23 11:16] LABS: Alanine Aminotransferase 30 U/L (12-78); Albumin Level 4.4 g/dl (3.5-5.0); Alkaline Phosphatase 96 U/L (38-126); Anion Gap 10.4 mEq/L (5-15); Aspartate Amino Transferase 35 U/L (17-59); Bilirubin,Direct 0.4 mg/dl (0.0-0.4); Bilirubin,Indirect 0.5 mg/dL (0.0-0.9); Bilirubin,Total 0.9 mg/dl (0.2-1.3); Bilirubin,Unconjugated 0.5 mg/dL (0.0-1.1); Blood Urea Nitrogen 15 mg/dl (9-20); Carbon Dioxide 33 mmol/L (22.0-30.0); Cholesterol 155 mg/dl (140-200); Estimated Glomerular Filt Rate 67 ml/min (>60); GFR (African American) 81 ML/MIN (>60); Glucose 96 mg/dl (74-100); Total Protein,Serum 7.5 g/dl (6.3-8.2); Triglycerides 68 mg/dl (30-150); VLDL Cholesterol 14 mg/dL (0-40)
[2023-10-23 11:17] LABS: Chol/HDL Ratio 2.3 (1-3.5); HDL Cholesterol 68 mg/dl (40-60); Magnesium 1.9 mg/dl (1.6-2.3)
[2023-10-23 11:28] LABS: Direct LDL Cholesterol 75.51 mg/dL (100-129)
[2023-10-23 11:47] LABS: Thyroid Stimulating Hormone 0.08 uIU/mL (0.465-4.68)
[2023-10-23 12:23] LABS: Vitamin B12 929 pg/mL (239-931)
== END 2023-10-23 23:59 | disposition home or self-care (01) ==
LOC: LAB 07:59
PROVIDERS: PCP Family Medicine; Visit Provider Physician Assistant
DX: E53.8 Deficiency of other specified B group vitamins (principal); I10 Essential (primary) hypertension; I25.118 Atherosclerotic heart disease of native coronary artery with other forms of angina pectoris; E78.2 Mixed hyperlipidemia; Z79.899 Other long term (current) drug therapy
CPT/HCPCS: 80048; 80061; 80076; 82607; 83735; 84439; 84443; 85025

== ENCOUNTER 2023-11-05 08:41 | Outpatient (CLI) | payer MEDICARE, SELFPAY ==
--- NOTE | 2023-11-05 08:44 | US_ITS ---
FINAL REPORT CLINICAL HISTORY: AAA COMPARISON: None FINDINGS: ABDOMINAL AORTA ANEURYSM SCREENING: Ultrasound examination of the abdominal aorta fails to reveal any evidence of an aneurysm. The abdominal aorta measures 2.3 cm in greatest diameter. The proximal iliac arteries are unremarkable in appearance. There is mild plaque present in the abdominal aorta. IMPRESSION: No evidence of abdominal aortic aneurysm. Mild plaque is present in the abdominal aorta. Reviewed, Interpreted and Dictated by Peterson Green MD Transcribed by Monica Rondon Authenticated and [facility]
== END 2023-11-05 23:59 | disposition home or self-care (01) ==
LOC: RAD 08:41
PROVIDERS: PCP Family Medicine; Visit Provider Family Medicine
DX: Z13.6 Encounter for screening for cardiovascular disorders (principal)
CPT/HCPCS: 76705

== ENCOUNTER 2024-06-06 18:33 | Emergency (ER) | payer MEDICARE, SELFPAY ==
--- NOTE | 2024-06-06 19:09 | EXP.UTC ---
Discharge Plan Disposition Patient Disposition: Home, Self-Care Condition: Good Prescriptions Prescriptions: New prednisone 10 mg tablet 10 mg PO DIRECTED 6 Days Qty: 14 0RF Rx Instructions: Take 4 tablets daily for 2 days, then take 2 tablets daily for 2 days, then take 1 tablet daily for 2 days, then stop. triamcinolone acetonide 0.1 % cream 1 applic topical BID PRN (Reason: itching) Qty: 30 0RF acyclovir 800 mg tablet 800 mg PO 5XDAY 7 Days Qty: 35 0RF No Action levothyroxine 125 mcg capsule 125 mcg PO DAILY metoprolol succinate 50 mg tablet extended release 24 hr See Rx Instructions .ROUTE .COMPLEX Qty: 90 1RF Dose Instruction: Take 1 tablet by mouth once daily Rx Instructions: Take 1 tablet by mouth once daily amlodipine 5 mg tablet 5 mg PO DAILY lisinopril 40 mg tablet 40 mg PO DAILY pitavastatin magnesium 4 mg tablet 4 mg PO DAILY Qty: 90 3RF nitroglycerin 0.4 mg tablet, sublingual 0.4 mg SUBLINGUAL Q5M Qty: 25 0RF Rx Instructions: do not exceed 3 doses per episode B12 Active 1,000 mcg tablet,chewable 1,000 mcg PO DAILY Qty: 30 5RF aspirin 81 mg tablet,delayed release (DR/EC) 81 mg PO DAILY Qty: 90 3RF methylcellulose (with sugar) 850 GM powder 850 g PO DAILY Referrals Follow up/Referrals: Nacho Davidson MD [Primary Care Provider] - See instructions Activity Restrictions/Add. Instructions Additional Instructions/Restrictions: Drink plenty of fluids. Take tylenol or ibuprofen for pain or fever. Take the medications as directed. Follow up with your regular doctor. GO TO THE ER FOR ANY WORSENING SYMPTOMS Clinical Impressions Clinical Impression: Shingles Instructions Patient Instructions: Shingles, Prednisone, Triamcinolone Topical, Acyclovir Print Language Print Language: Icelandic Discharge ED Provider: Michael Tovar [facility] General Stated complaint: rash Time Seen by Provider: 06/06/24 19:09 Related Data Home Medications ?Medication ?Instructions ?Recorded ?Confirmed methylcellulose (with sugar) oral 850 g PO DAILY fiber supplement 06/21/18 04/24/24 powder levothyroxine 125 mcg capsule 125 mcg PO DAILY 02/05/21 12/24/24 amlodipine 5 mg tablet 5 mg PO DAILY 04/22/22 06/06/24 lisinopril 40 mg tablet 40 mg PO DAILY 04/22/22 06/06/24 Previous Rx's ?Medication ?Instructions ?Recorded metoprolol succinate 50 mg See Rx Instructions .Route 04/15/21 tablet,extended release 24 hr .COMPLEX #90 tabs mecobalamin (vitamin B12) 1,000 1,000 mcg PO DAILY #30 tabs 10/08/21 mcg chewable tablet (B12 Active) aspirin 81 mg tablet,delayed 81 mg PO DAILY #90 tabs 07/20/22 release nitroglycerin 0.4 mg sublingual 0.4 mg sublingual Q5M #25 tabs 04/24/24 tablet pitavastatin magnesium 4 mg tablet 4 mg PO DAILY #90 tabs 04/24/24 acyclovir 800 mg tablet 800 mg PO 5XDAY 7 days #35 tabs 06/06/24 prednisone 10 mg tablet 10 mg PO DIRECTED 6 days #14 06/06/24 tabs triamcinolone acetonide 0.1 % 1 applic topical BID PRN itching 06/06/24 topical cream #30 grams Allergies Allergy/AdvReac Type Severity Reaction Status Date / Time atorvastatin Allergy Mild Verified 04/24/24 14:30 fexofenadine (From ROSALIND-D) Allergy Unknown Verified 04/24/24 14:30 NSAIDS (Non-Steroidal Allergy Unknown Verified 04/24/24 14:30 Anti-Inflamma (NSAIDS (NON-STEROIDAL ANTI-INFLAMMA) pseudoephedrine (From Allergy Unknown Verified 04/24/24 14:30 ROSALIND-D) rosuvastatin AdvReac Intermediate bladder Verified 04/24/24 14:30 problems [facility] Disclaimer: The information contained in this section may have been updated after the patient was seen, as this information can be updated by other users. Medical History B12 deficiency HLD (hyperlipidemia) Sinus tachycardia Coronary atherosclerosis Abnormal CT of the chest Atypical angina Restless sleeper Daytime somnolence Palpitations Dyspnea Chest pain Surgical History Hx of total thyroidectomy Social History Smoking Status: Never smoker second hand exposure: No alcohol intake: never substance use type: denies use current occupational status: employed Travel in the last 8 weeks: Inside the [place] household members: spouse housing: house current occupational exposures/hazards: Yes caffeine: Yes Have you lived/traveled outside [place] in past 30 days?: No Contact w/someone who lives/traveled outside [place] past 30 days?: No Exposure to someone with infectious disease in past 14 days?: No Do you have a fever (greater than 100.4 F or 38 C)?: No Have you tested positive for COVID-19: No Exposed to someone with COVID-19 in past 14 days?: No Do you have a sore throat?: No Do you have a cough?: No Do you have any weakness?: No Do you have any diarrhea?: No Are you experiencing any unusual bleeding?: No Do you have any muscle aches/pain?: No Do you have any abdominal pain?: No Are you experiencing loss of taste or smell?: No ROS Obtained: Yes All systems reviewed & no additional complaints except as documented Constitutional Constitutional: Denies chills and Denies fever(s) Eyes Eyes: Denies eye discharge ENT Ears, Nose, Mouth, and Throat: Denies dizziness, Denies otalgia and Denies sore throat Cardiovascular Cardiovascular: Denies chest pain Respiratory Respiratory: Denies shortness of breath, Denies chest congestion, Denies cough, Denies stridor and Denies wheezing Gastrointestinal Gastrointestingal: Denies nausea or vomiting Musculoskeletal Musculoskeletal: Reports system reviewed and no additional complaints, except as documented and Denies arthralgias Integumentary/Breasts Skin/Breast: Reports as per HPI and Reports rash Neurologic Neurologic: Denies dizziness and Denies paresthesias Allergic/Immunologic Allergic/Immunologic: Denies wheezing Physical Exam General General appearance: alert and in no apparent distress Head Head exam: atraumatic, normocephalic and normal inspection Eye Eye exam: Present normal appearance, PERRL and EOMI; Absent conjunctival redness, conjunctival injection or discharge ENT ENT exam: Present normal exam, normal oropharynx, mucous membranes moist, TM's normal bilaterally and normal external ear exam Neck Neck exam: Present normal inspection, full ROM and trachea midline; Absent meningismus or lymphadenopathy Chest Chest inspection: Present normal inspection and symmetric chest wall rise; Absent tenderness Respiratory Respiratory exam: Present normal lung sounds bilaterally; Absent respiratory distress Cardiovascular Cardiovascular exam: Present regular rate and normal rhythm; Absent JVD Abdominal Exam Abdominal exam: Present soft and normal bowel sounds; Absent distention, tenderness or guarding Extremities Exam Extremities exam: Present normal inspection, full ROM and normal capillary refill; Absent calf tenderness Back Exam Back exam: Present normal inspection; Absent tenderness Neurological Exam Neurological exam: Present alert and oriented X3 Psychiatric Psychiatric exam: Present normal affect and normal mood Skin Skin exam: Present rash Lymphatic Lymphatic Findings: no adenopathy Medical Decision Making Medical Records Medical records reviewed: No I reviewed the patient's medical records. Screening: Per USPSTF and CDC recommendations, given the prevalence of disease in our region, it is our hospital?s policy to screen for HIV and viral Hepatitis for all patients aged 18 and over and those with ongoing risk factors. Ran Inquiry Pt receiving controlled substance: No
[2024-06-06 19:10] VITALS: BP 125/77; PULSE 79; RESP 20; TEMP 36.6; O2SAT 98; BMI 20.3
[2024-06-06] MEDS: predniSONE 20MG TAB 20 MG PO (19:45)
[2024-06-06] MEDS: ACYCLOVIR 400MG TAB 400 MG PO (19:45)
[2024-06-06 20:17] VITALS: BP 125/77; PULSE 79; RESP 20; TEMP 36.6
== END 2024-06-06 20:21 | disposition home or self-care (01) ==
PROVIDERS: Emergency Provider Nurse Practitioner Family; PCP Family Medicine
DX: B02.9 Zoster without complications (principal); R21 Rash and other nonspecific skin eruption
CPT/HCPCS: 99212; G0381

== ENCOUNTER 2024-08-23 13:12 | Emergency (ER) | payer MEDICARE, SELFPAY ==
--- NOTE | 2024-08-23 13:16 | ECG_ITS ---
APPROVED REPORT Exam: Resting ECG HR:74 bpm ECG Measurements Heart Rate 74 AXES [place] 134 P 102 QRSd 88 QRS 105 QT 363 T 125 QTc 390 Conclusion SINUS RHYTHM ARM LEADS REVERSED [INVERTED P AND QRS IN I] NORMAL ECG Electronically signed by : KATIA LOPEZ, 08/25/2024 10:53:50
--- NOTE | 2024-08-23 13:17 | XR_ITS ---
FINAL REPORT TECHNIQUE: Single view chest CLINICAL HISTORY: SOA CP FINDINGS: A single view of the chest was obtained. The heart and mediastinum are within normal limits. The lungs are clear. There is no pneumothorax. IMPRESSION: No acute cardiopulmonary process. Reviewed, Interpreted and Dictated by Peterson Green MD Transcribed by Samantha Sinclair Authenticated and [facility]
[2024-08-23 13:21] VITALS: BP 142/89; PULSE 76; RESP 20; TEMP 36.7; O2SAT 98; BMI 20.9
--- NOTE | 2024-08-23 13:27 | ED_ITS ---
Discharge Plan Disposition Patient Disposition: Home, Self-Care Condition: Good Prescriptions Prescriptions: No Action levothyroxine 125 mcg capsule 125 mcg PO DAILY metoprolol succinate 50 mg tablet extended release 24 hr See Rx Instructions .ROUTE .COMPLEX Qty: 90 1RF Dose Instruction: Take 1 tablet by mouth once daily Rx Instructions: Take 1 tablet by mouth once daily amlodipine 5 mg tablet 5 mg PO DAILY lisinopril 40 mg tablet 40 mg PO DAILY pitavastatin magnesium 4 mg tablet 4 mg PO DAILY Qty: 90 3RF nitroglycerin 0.4 mg tablet, sublingual 0.4 mg SUBLINGUAL Q5M Qty: 25 0RF Rx Instructions: do not exceed 3 doses per episode B12 Active 1,000 mcg tablet,chewable 1,000 mcg PO DAILY Qty: 30 5RF aspirin 81 mg tablet,delayed release (DR/EC) 81 mg PO DAILY Qty: 90 3RF methylcellulose (with sugar) 850 GM powder 850 g PO DAILY prednisone 10 mg tablet 10 mg PO DIRECTED 6 Days Qty: 14 0RF Rx Instructions: Take 4 tablets daily for 2 days, then take 2 tablets daily for 2 days, then take 1 tablet daily for 2 days, then stop. triamcinolone acetonide 0.1 % cream 1 applic topical BID PRN (Reason: itching) Qty: 30 0RF acyclovir 800 mg tablet 800 mg PO 5XDAY 7 Days Qty: 35 0RF Referrals Follow up/Referrals: Navjot Farrell MD [Staff Physician] - See instructions Provider,MD Nimo [Primary Care Provider] - See instructions Clinical Impressions Clinical Impression: Chest discomfort Instructions Patient Instructions: DI for Atypical Chest Pain Print Language Print Language: Romansh Discharge ED Provider: Susy Brown HPI <HIRA Mosley - Last Filed: 08/23/24 16:00> General Chief Complaint: Chest Pain Stated Complaint: CP Time Seen by Provider: 08/23/24 13:16 Mode of Arrival: Ambulatory Source of Information: Patient Description of Symptoms (Recalled from ER Triage Doc. by RN): pt is here today for off and on chest pain and tightness that goes through to back for last 4 weeks, denies any soa n/v or dizziness History of Present Illness HPI narrative: 64-year-old male presents to the emergency department accompanied by spouse for a waxing and waning history of chest pain, chest comfort and chest tightness that has been going on for the last several months 4 to 6 weeks approximately. Patient states around June he was outside shoveling snow , has had waxing and waning chest discomfort since. Denies any fever chills, denies shortness of breath, denies nausea vomiting constipation diarrhea, no abdominal pain, no urinary type symptomatology, no melena, no hematochezia, no hematemesis, or hemoptysis, patient does admit to fatigue/decreased energy. Patient states the pain is somewhat worsened with exertion, currently a 0 out of 10, at maximal it is a 3 or 4 out of 10. Patient has past medical history consistent with coronary artery disease, heart cath form by his continuous absorption process operator 4 years ago, he has upcoming appoint with his continuous absorption process operator next week. Other past medical history consistent with hyperlipidemia, vitamin B12 deficiency, hypertension, history of total thyroidectomy on thyroid hormone replacement. Triage vitals grossly unremarkable, no history of substance abuse. Onset (ago): month(s) Related Data Home Medications ?Medication ?Instructions ?Recorded ?Confirmed methylcellulose (with sugar) oral 850 g PO DAILY fiber supplement 06/21/18 04/24/24 powder levothyroxine 125 mcg capsule 125 mcg PO DAILY 07/19/20 06/06/24 amlodipine 5 mg tablet 5 mg PO DAILY 04/22/22 06/06/24 lisinopril 40 mg tablet 40 mg PO DAILY 04/22/22 06/06/24 Previous Rx's ?Medication ?Instructions ?Recorded metoprolol succinate 50 mg See Rx Instructions .Route 04/15/21 tablet,extended release 24 hr .COMPLEX #90 tabs mecobalamin (vitamin B12) 1,000 1,000 mcg PO DAILY #30 tabs 10/08/21 mcg chewable tablet (B12 Active) aspirin 81 mg tablet,delayed 81 mg PO DAILY #90 tabs 07/20/22 release nitroglycerin 0.4 mg sublingual 0.4 mg sublingual Q5M #25 tabs 04/24/24 tablet pitavastatin magnesium 4 mg tablet 4 mg PO DAILY #90 tabs 04/24/24 acyclovir 800 mg tablet 800 mg PO 5XDAY 7 days #35 tabs 06/06/24 prednisone 10 mg tablet 10 mg PO DIRECTED 6 days #14 06/06/24 tabs triamcinolone acetonide 0.1 % 1 applic topical BID PRN itching 06/06/24 topical cream #30 grams Allergies Allergy/AdvReac Type Severity Reaction Status Date / Time atorvastatin Allergy Mild Verified 04/24/24 14:30 fexofenadine (From ROSALIND-D) Allergy Unknown Verified 04/24/24 14:30 NSAIDS (Non-Steroidal Allergy Unknown Verified 04/24/24 14:30 Anti-Inflamma (NSAIDS (NON-STEROIDAL ANTI-INFLAMMA) pseudoephedrine (From Allergy Unknown Verified 04/24/24 14:30 ROSALIND-D) rosuvastatin AdvReac Intermediate bladder Verified 04/24/24 14:30 problems [facility] <HIRA Mosley - Last Filed: 08/23/24 16:00> [facility] Disclaimer: The information contained in this section may have been updated after the patient was seen, as this information can be updated by other users. Medical History B12 deficiency HLD (hyperlipidemia) Sinus tachycardia Coronary atherosclerosis Abnormal CT of the chest Atypical angina Restless sleeper Daytime somnolence Palpitations Dyspnea Chest pain Surgical History Hx of total thyroidectomy Social History Smoking Status: Never smoker second hand exposure: No alcohol intake: never substance use type: denies use current occupational status: employed Travel in the last 8 weeks: Inside the [place] household members: spouse housing: house current occupational exposures/hazards: Yes caffeine: Yes Have you lived/traveled outside [place] in past 30 days?: No Contact w/someone who lives/traveled outside [place] past 30 days?: No Exposure to someone with infectious disease in past 14 days?: No Do you have a fever (greater than 100.4 F or 38 C)?: No Have you tested positive for COVID-19: No Exposed to someone with COVID-19 in past 14 days?: No Do you have a sore throat?: No Do you have a cough?: No Do you have any weakness?: No Do you have any diarrhea?: No Are you experiencing any unusual bleeding?: No Do you have any muscle aches/pain?: No Do you have any abdominal pain?: No Are you experiencing loss of taste or smell?: No Other Medical History Have you received the Flu Vaccine for this season: Yes Have you received the Pneumonia Vaccine: No <HIRA Mosley - Last Filed: 08/23/24 16:00> ROS Obtained: Yes All systems reviewed & no additional complaints except as documented Physical Exam <HIRA Mosley - Last Filed: 08/23/24 16:00> General General appearance: alert and in no apparent distress Head Head exam: atraumatic and normocephalic Eye Eye exam: Present normal appearance, PERRL and EOMI Neck Neck exam: Present full ROM; Absent meningismus Chest Chest inspection: Present normal inspection Respiratory Respiratory exam: Absent respiratory distress, wheezes, stridor, accessory muscle use or prolonged expiratory phase Cardiovascular Cardiovascular exam: Present normal rhythm and other (Pulses equal and symmetric in bilateral upper and lower extremities, there is no chest wall pain to palpation) Abdominal Exam Abdominal exam: Present normal bowel sounds; Absent distention, tenderness, guarding, rebound or hypoactive bowel sounds Extremities Exam Extremities exam: Absent edema Neurological Exam Neurological exam: Present alert Psychiatric Psychiatric exam: Present normal affect Skin Skin exam: Present warm and dry HEART Score <HIRA Mosley - Last Filed: 08/23/24 16:00> HEART Score HEART Score assessment performed?: Yes History (anamnesis): Slightly suspicious ECG: Normal Age: >65 years Risk factors: 1-2 risk factors Troponin: </= normal limit HEART Score: 3 <Papa Xiao MD - Last Filed: 08/23/24 17:03> HEART Score HEART Score: 3 Critical Care <HIRA Mosley - Last Filed: 08/23/24 16:00> Critical Care Time Critical Care Time: No Medical Decision Making <HIRA Mosley - Last Filed: 08/23/24 16:00> Medical Records Medical records reviewed: Yes I reviewed the patient's medical records. Ran Inquiry Pt receiving controlled substance: No Ran was queried for this patient: No Vital Signs Vital Signs: 08/23/24 13:21 08/23/24 13:30 08/23/24 14:00 Temperature 98.1 F Temperature Source Oral Pulse Rate 74 69 Pulse Rate [Left Radial] 76 Respiratory Rate 20 15 13 Blood Pressure 122/78 105/66 L Blood Pressure [Right Arm] 142/89 H Blood Pressure Mean 94 79 Blood Pressure Mean [Right Arm] 106 Blood Pressure Source Blood Pressure Position 02 Sat by Pulse Oximetry 98 97 97 Oxygen Delivery Method Room Air 08/23/24 14:30 08/23/24 15:00 08/23/24 16:12 Temperature 98.6 F Temperature Source Oral Pulse Rate 65 64 62 Pulse Rate [Left Radial] Respiratory Rate 16 13 16 Blood Pressure 107/70 L 107/72 L 124/74 Blood Pressure [Right Arm] Blood Pressure Mean 80 Blood Pressure Mean [Right Arm] Blood Pressure Source Automatic Cuff Blood Pressure Position Sitting 02 Sat by Pulse Oximetry 96 97 Oxygen Delivery Method Room Air Room Air Lab Data Labs: Lab Results 08/23/24 13:17: WBC 6.7, RBC 4.54 L, Hgb 14.1, Hct 42.3, MCV 93.2, MCH 31.1, MCHC 33.3, RDW 12.9, Plt Count 166, MPV 11.6 H, Neut % (Auto) 70.5, Lymph % (Auto) 19.2, Ramsey % (Auto) 8.9, Eos % (Auto) 0.7, Baso % (Auto) 0.6, Neut # (Auto) 4.7, Lymph # (Auto) 1.3, Ramsey # (Auto) 0.6, Eos # (Auto) 0.1, Baso # (Auto) 0.0, Magnesium 2.0, Troponin I < 0.01, NT-Pro-B Natriuret Pep 126 H, Lipase 34, TSH 0.07 L, Thyroxine (T4) 12.5 H 08/23/24 13:18: PT 11.4, INR 1.02, APTT 26.6, Free T4 1.34 08/23/24 15:21: Sodium 138, Potassium 4.3, Chloride 104, Carbon Dioxide 32 H, Anion Gap 6.3, BUN 13, Creatinine 1.00, Estimated Creat Clear 72, Estimated GFR 75, Est GFR ( Amer) 90, Glucose 105 H, Calcium 9.1, Total Bilirubin 0.4, AST 43, ALT 45, Alkaline Phosphatase 89, Troponin I < 0.01, Total Protein 7.0, Albumin 4.4, Globulin 2.6, Albumin/Globulin Ratio 1.7 08/23/24 13:17 08/23/24 15:21 Response Orders (Tests/Meds): ED MEDICATIONS Discontinued Medications Generic Name Dose Route Start Last Admin Trade Name Freq PRN Reason Stop Dose Admin Aspirin 325 mg 08/23/24 13:18 08/23/24 13:39 Aspirin 325mg Tablet PO 08/23/24 13:19 325 mg ONCE ONE Administration ORDERS Category Date Time Status XR chest portable Stat Exams 08/23/24 13:17 Completed Complete Blood Count Auto Diff Stat Lab 08/23/24 13:17 Completed Comprehensive Metabolic Panel Stat Lab 08/23/24 15:21 Completed Free T4 (Free Thyroxine) Stat Lab 08/23/24 13:18 Completed Lipase Stat Lab 08/23/24 13:17 Completed Magnesium Stat Lab 08/23/24 13:17 Completed NT Pro Brain Natriuretic Pep. Stat Lab 08/23/24 13:17 Completed PT INR [Prothrombin Time INR] Stat Lab 08/23/24 13:18 Completed PTT [Activated Partial Thrombo Time] Stat Lab 08/23/24 13:18 Completed T4 (Thyroxine) Stat Lab 08/23/24 13:17 Completed TSH [Thyroid Stimulating Hormone] Stat Lab 08/23/24 13:17 Completed Troponin I Q3H Lab 08/23/24 15:21 Completed Troponin I Q3H Lab 08/23/24 19:30 Ordered Troponin I Stat Lab 08/23/24 13:17 Completed MDM Narrative Medical Decision Narrative: 64-year-old male presents to the emergency department with chest pain, for 1 to 2 months, differential diagnose include but not limited to, ACS, cardiac arrhythmia, electrolyte disturbance, costochondritis, pneumonia, acute bronchitis, body type reaction, panic attack, gastritis, GERD. Obtain basic laboratory studies, PT/INR, PTT, TSH, with reflex T4, lipase level magnesium level, troponin, proBNP, 325 mg aspirin p.o. for chest pain, chest x- ray, Discussed this case with attending physician Dr. Jones I along with the attending physician for the patient's EKG, NSR at 74 bpm [place] interval within normals, QT interval within normal limits, reviewed this patient's EKG at 1319 no STEMI. CBC unremarkable Coags within normal limits T4 is elevated at 12.5, proBNP is elevated minimally at 126, initial troponin within normal limits less than 0.01. TSH is 0.07, which is decreased, lipase within normal limits. I reviewed the patient's chest x-ray along the corresponding radiologic report no acute cardiopulmonary process. Repeat troponin is less than 0.01. Reexamination of the patient at 3:55 PM, patient is currently chest pain-free, he has remained hemodynamically stable throughout his time in the emergency department, his TSH and T4 levels are within the limits of his thyroid supplementation therapy, in the setting of post thyroidectomy due to thyroid cancer/nodules data deficient but several years ago. Patient has follow-up next week with continuous absorption process operator I advised him to keep this appointment. Patient is cleared to be discharged home to self-care, he will return to the emergency department for any worsening signs or symptoms. Patient and family voiced understand agree with current treatment plan/discharge plan. Heart score of 3. <Papa Xiao MD - Last Filed: 08/23/24 17:03> Vital Signs Vital Signs: 08/23/24 13:21 08/23/24 13:30 08/23/24 14:00 Temperature 98.1 F Temperature Source Oral Pulse Rate 74 69 Pulse Rate [Left Radial] 76 Respiratory Rate 20 15 13 Blood Pressure 122/78 105/66 L Blood Pressure [Right Arm] 142/89 H Blood Pressure Mean 94 79 Blood Pressure Mean [Right Arm] 106 Blood Pressure Source Blood Pressure Position 02 Sat by Pulse Oximetry 98 97 97 Oxygen Delivery Method Room Air 08/23/24 14:30 08/23/24 15:00 08/23/24 16:12 Temperature 98.6 F Temperature Source Oral Pulse Rate 65 64 62 Pulse Rate [Left Radial] Respiratory Rate 16 13 16 Blood Pressure 107/70 L 107/72 L 124/74 Blood Pressure [Right Arm] Blood Pressure Mean 80 Blood Pressure Mean [Right Arm] Blood Pressure Source Automatic Cuff Blood Pressure Position Sitting 02 Sat by Pulse Oximetry 96 97 Oxygen Delivery Method Room Air Room Air Lab Data Labs: Lab Results 08/23/24 13:17: WBC 6.7, RBC 4.54 L, Hgb 14.1, Hct 42.3, MCV 93.2, MCH 31.1, MCHC 33.3, RDW 12.9, Plt Count 166, MPV 11.6 H, Neut % (Auto) 70.5, Lymph % (Auto) 19.2, Ramsey % (Auto) 8.9, Eos % (Auto) 0.7, Baso % (Auto) 0.6, Neut # (Auto) 4.7, Lymph # (Auto) 1.3, Ramsey # (Auto) 0.6, Eos # (Auto) 0.1, Baso # (Auto) 0.0, Magnesium 2.0, Troponin I < 0.01, NT-Pro-B Natriuret Pep 126 H, Lipase 34, TSH 0.07 L, Thyroxine (T4) 12.5 H 08/23/24 13:18: PT 11.4, INR 1.02, APTT 26.6, Free T4 1.34 08/23/24 15:21: Sodium 138, Potassium 4.3, Chloride 104, Carbon Dioxide 32 H, Anion Gap 6.3, BUN 13, Creatinine 1.00, Estimated Creat Clear 72, Estimated GFR 75, Est GFR ( Amer) 90, Glucose 105 H, Calcium 9.1, Total Bilirubin 0.4, AST 43, ALT 45, Alkaline Phosphatase 89, Troponin I < 0.01, Total Protein 7.0, Albumin 4.4, Globulin 2.6, Albumin/Globulin Ratio 1.7 Response Orders (Tests/Meds): ED MEDICATIONS Discontinued Medications Generic Name Dose Route Start Last Admin Trade Name Freq PRN Reason Stop Dose Admin Aspirin 325 mg 08/23/24 13:18 08/23/24 13:39 Aspirin 325mg Tablet PO 08/23/24 13:19 325 mg ONCE ONE Administration ORDERS Category Date Time Status XR chest portable Stat Exams 08/23/24 13:17 Completed Complete Blood Count Auto Diff Stat Lab 08/23/24 13:17 Completed Comprehensive Metabolic Panel Stat Lab 08/23/24 15:21 Completed Free T4 (Free Thyroxine) Stat Lab 08/23/24 13:18 Completed Lipase Stat Lab 08/23/24 13:17 Completed Magnesium Stat Lab 08/23/24 13:17 Completed NT Pro Brain Natriuretic Pep. Stat Lab 08/23/24 13:17 Completed PT INR [Prothrombin Time INR] Stat Lab 08/23/24 13:18 Completed PTT [Activated Partial Thrombo Time] Stat Lab 08/23/24 13:18 Completed T4 (Thyroxine) Stat Lab 08/23/24 13:17 Completed TSH [Thyroid Stimulating Hormone] Stat Lab 08/23/24 13:17 Completed Troponin I Q3H Lab 08/23/24 15:21 Completed Troponin I Q3H Lab 08/23/24 19:30 Ordered Troponin I Stat Lab 08/23/24 13:17 Completed MDM Narrative Medical Decision Narrative: 64-year-old male presents to the emergency department with chest pain, for 1 to 2 months, differential diagnose include but not limited to, ACS, cardiac arrhythmia, electrolyte disturbance, costochondritis, pneumonia, acute bronchitis, body type reaction, panic attack, gastritis, GERD. Obtain basic laboratory studies, PT/INR, PTT, TSH, with reflex T4, lipase level magnesium level, troponin, proBNP, 325 mg aspirin p.o. for chest pain, chest x- ray, Discussed this case with attending physician Dr. Robert Gilliam along with the attending physician for the patient's EKG, NSR at 74 bpm [place] interval within normals, QT interval within normal limits, reviewed this patient's EKG at 1319 no STEMI. CBC unremarkable Coags within normal limits T4 is elevated at 12.5, proBNP is elevated minimally at 126, initial troponin within normal limits less than 0.01. TSH is 0.07, which is decreased, lipase within normal limits. I reviewed the patient's chest x-ray along the corresponding radiologic report no acute cardiopulmonary process. Repeat troponin is less than 0.01. Reexamination of the patient at 3:55 PM, patient is currently chest pain-free, he has remained hemodynamically stable throughout his time in the emergency department, his TSH and T4 levels are within the limits of his thyroid supplementation therapy, in the setting of post thyroidectomy due to thyroid cancer/nodules data deficient but several years ago. Patient has follow-up next week with continuous absorption process operator I advised him to keep this appointment. Patient is cleared to be discharged home to self-care, he will return to the emergency department for any worsening signs or symptoms. Patient and family voiced understand agree with current treatment plan/discharge plan. Heart score of 3. I was consulted by the ALYSE, and we discussed the complexity of the problems being addressed. I approve the treatment and management plan for this patient's care in the emergency department, thus performing a substantive portion of the medical decision making. Papa Xiao MD
[2024-08-23 13:30] VITALS: BP 122/78; PULSE 74; RESP 15; O2SAT 97
[2024-08-23 13:31] LABS: Basophils % 0.6 % (0.1-2.0); Eosinophils # 0.1 K/mm3 (0.0-0.4); Eosinophils % 0.7 % (0.1-12.0); Hematocrit 42.3 % (42.0-52.0); Hemoglobin 14.1 g/dL (14.1-18.0); Lymphocytes # 1.3 K/mm3 (0.7-4.5); Lymphocytes % 19.2 % (10-50); Mean Corpuscular HGB Conc 33.3 g/dL (31.8-35.4); Mean Corpuscular Hemoglobin 31.1 pg (27.0-31.2); Mean Corpuscular Volume 93.2 fl (80-94); Mean Platelet Volume 11.6 fl (7.4-10.4); Monocytes # 0.6 K/mm3 (0.1-1.0); Monocytes % 8.9 % (1.7-9.3); Neutrophils # 4.7 K/mm3 (1.8-7.8); Neutrophils % 70.5 % (37.0-80.0); Platelet Count 166 K/mm3 (142-424); Red Blood Count 4.54 M/mm3 (4.60-6.20); Red Cell Distribution Width 12.9 % (11.5-17.5); White Blood Count 6.7 K/mm3 (4.8-10.8)
[2024-08-23] MEDS: ASPIRIN 325MG TABLET 325 MG PO (13:39)
[2024-08-23 13:42] LABS: Lipase 34 U/L (23-300)
[2024-08-23 13:44] LABS: Activated Partial Thrombo Time 26.6 seconds (22.8-30.6); INR 1.02 (0.9-1.1); Prothrombin Time 11.4 seconds (10.1-12.5)
[2024-08-23 13:54] LABS: NT Pro Brain Natriuretic Pep. 126 pg/mL (0-125)
[2024-08-23 13:56] LABS: Troponin I < 0.01 ng/ml (0.00-0.034)
[2024-08-23 13:58] LABS: T4 (Thyroxine) 12.5 ug/dl (5.53-11.0)
[2024-08-23 14:00] VITALS: BP 105/66; PULSE 69; RESP 13; O2SAT 97
[2024-08-23 14:12] LABS: Thyroid Stimulating Hormone 0.07 uIU/mL (0.465-4.68)
--- NOTE | 2024-08-23 14:14 | PC.NURSE ---
Assumed care of patient and took report from epi Vuong
[2024-08-23 14:30] VITALS: BP 107/70; PULSE 65; RESP 16; O2SAT 96
[2024-08-23 15:00] VITALS: BP 107/72; PULSE 64; RESP 13; O2SAT 97
[2024-08-23 15:19] LABS: Free T4 (Free Thyroxine) 1.34 ng/dl (0.78-2.19)
--- NOTE | 2024-08-23 15:24 | PC.NURSE ---
Repeat troponin drawn and sent to lab. Pt assisted to restroom.
[2024-08-23 15:37] LABS: Albumin Level 4.4 g/dl (3.5-5.0); Chloride 104 mmol/L (98-107); Potassium 4.3 mmoL/L (3.5-5.1); Sodium 138 mmol/L (136-145)
[2024-08-23 15:39] LABS: Blood Urea Nitrogen 13 mg/dl (9-20); Creatinine Clearance Estimated 72 mL/min (50-200); Estimated Glomerular Filt Rate 75 ml/min (>60); GFR (African American) 90 ML/MIN (>60)
[2024-08-23 15:40] LABS: Alanine Aminotransferase 45 U/L (12-78); Albumin/Globulin Ratio 1.7 (1.1-1.8); Alkaline Phosphatase 89 U/L (38-126); Anion Gap 6.3 mEq/L (5-15); Aspartate Amino Transferase 43 U/L (17-59); Bilirubin,Total 0.4 mg/dl (0.2-1.3); Calcium 9.1 mg/dl (8.4-10.2); Carbon Dioxide 32 mmol/L (22.0-30.0); Globulin 2.6 g/dL (1.3-3.2); Glucose 105 mg/dl (74-100)
[2024-08-23 15:52] LABS: Troponin I < 0.01 ng/ml (0.00-0.034)
[2024-08-23 16:12] VITALS: BP 124/74; PULSE 62; RESP 16; TEMP 37; O2SAT 97
== END 2024-08-23 16:18 | disposition home or self-care (01) ==
PROVIDERS: Physician Assistant; Emergency Provider Emergency Medicine
DX: R07.89 Other chest pain (principal); R07.9 Chest pain, unspecified; R53.83 Other fatigue
CPT/HCPCS: 71045; 80053; 83690; 83735; 83880; 84436; 84439; 84443; 84484; 85025; 85610; 85730; 93005; 99284

== ENCOUNTER 2024-08-26 07:45 | Outpatient (CLI) | payer MEDICARE, SELFPAY ==
[2024-08-26 08:58] LABS: Basophils % 0.6 % (0.1-2.0); Eosinophils # 0.1 K/mm3 (0.0-0.4); Eosinophils % 1.6 % (0.1-12.0); Hematocrit 41.1 % (42.0-52.0); Hemoglobin 13.5 g/dL (14.1-18.0); Lymphocytes # 1.2 K/mm3 (0.7-4.5); Lymphocytes % 23.5 % (10-50); Mean Corpuscular HGB Conc 32.8 g/dL (31.8-35.4); Mean Corpuscular Hemoglobin 30.6 pg (27.0-31.2); Mean Corpuscular Volume 93.2 fl (80-94); Mean Platelet Volume 11.7 fl (7.4-10.4); Monocytes # 0.6 K/mm3 (0.1-1.0); Monocytes % 11.5 % (1.7-9.3); Neutrophils # 3.2 K/mm3 (1.8-7.8); Neutrophils % 62.6 % (37.0-80.0); Platelet Count 155 K/mm3 (142-424); Red Blood Count 4.41 M/mm3 (4.60-6.20); Red Cell Distribution Width 12.7 % (11.5-17.5); White Blood Count 5.1 K/mm3 (4.8-10.8)
[2024-08-26 09:21] LABS: Alanine Aminotransferase 37 U/L (12-78); Albumin Level 4.4 g/dl (3.5-5.0); Alkaline Phosphatase 77 U/L (38-126); Anion Gap 8.3 mEq/L (5-15); Aspartate Amino Transferase 35 U/L (17-59); Bilirubin,Indirect 0.8 mg/dL (0.0-0.9); Bilirubin,Total 0.8 mg/dl (0.2-1.3); Bilirubin,Unconjugated 0.8 mg/dL (0.0-1.1); Blood Urea Nitrogen 13 mg/dl (9-20); Calcium 8.8 mg/dl (8.4-10.2); Carbon Dioxide 33 mmol/L (22.0-30.0); Chloride 102 mmol/L (98-107); Chol/HDL Ratio 2.5 (1-3.5); Cholesterol 122 mg/dl (140-200); Estimated Glomerular Filt Rate 75 ml/min (>60); GFR (African American) 90 ML/MIN (>60); Glucose 93 mg/dl (74-100); HDL Cholesterol 49 mg/dl (40-60); Potassium 4.3 mmoL/L (3.5-5.1); Sodium 139 mmol/L (136-145); Triglycerides 68 mg/dl (30-150); VLDL Cholesterol 14 mg/dL (0-40)
[2024-08-26 09:32] LABS: Direct LDL Cholesterol 51.68 mg/dL (100-129)
[2024-08-26 09:37] LABS: Free T4 (Free Thyroxine) 1.42 ng/dl (0.78-2.19)
[2024-08-26 09:51] LABS: Thyroid Stimulating Hormone 0.06 uIU/mL (0.465-4.68)
== END 2024-08-26 23:59 | disposition home or self-care (01) ==
LOC: LAB 07:47
PROVIDERS: PCP Family Medicine; Visit Provider Nurse Practitioner Family
DX: I25.118 Atherosclerotic heart disease of native coronary artery with other forms of angina pectoris (principal); R00.0 Tachycardia, unspecified; E78.2 Mixed hyperlipidemia
CPT/HCPCS: 36415; 80048; 80061; 80076; 84439; 84443; 85025

== ENCOUNTER 2025-03-17 08:35 | Outpatient (CLI) | payer MEDICARE, SELFPAY ==
--- OUTSIDE RECORDS SUMMARY | 2025-01-17 10:56 | XMS_ITS | Encounter Summary ---
Author Organization [facility] Address [address] [place] [address] Care Team Providers Care Store Sales Consultant Name Role Phone Nacho Davidson MD Primary Care Provider [phone] Lisa Price SPEECH AND LANGUAGE SPECIALIST Unavailable [phone] Reason for Referral * Imaging (Routine) - Closed Specialty Diagnoses / Procedures Referred By Chidi t Referred To Contact Radiology Diagnoses Papillary carcinoma, follicular variant Procedures US Head Neck Soft Tissue Jerilyn Cisse APRN, LPN RN HOSPICE [address] [place], [place] [address] Phone: tel: fax: Referral ID Status Reason Start Date Expiration Date Visits Re quested Visits Authorized [id number] Closed 02/22/2024 08/23/2025 1 1 Reason for Visit * Imaging (Routine) - Closed Specialty Diagnoses / Procedures Referred By Contac t Referred To Contact Radiology Diagnoses Papillary carcinoma, follicular variant Procedures US Head Neck Soft Tissue Jerilyn Cisse APRN, LPN RN HOSPICE [address] [address] Phone: tel: fax: Referral ID Status Reason Start Date Expiration Date Visits Re quested Visits Authorized [id number] Closed 02/22/2024 08/23/2025 1 1 Encounter Details Date Type Department Care Team (Latest Contact Info) Description 01/17/2025 10:56 AM EDT - 01/17/2025 11:59 PM EDT Hospital Encounter [facility] Radiology [address] [place] [address] Papillary carcinoma, follicular variant Discharge Disposition: Home or Self Care Social History Tobacco Use Types Packs/Day Years Used Date Smoking Tobacco: Former Cigarettes 1 18 1 974 - 09/02/1981 Smokeless Tobacco: Never Alcohol Use Standard Drinks/Week Comments No 0 (1 standard drink = 0.6 oz pure alcohol) Alcoholic Drinks/day: Never Drank Alcohol PHQ-2 Answer Date Recorded Patient Health Questionnaire-2 Score 0 04/24/2021 Sex and Gender Information Value Date Recorded Sex Assigned at Not on file Legal Sex Male 7:31 PM EDT Gender Identity Not on file Sexual Orientation Not on file 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 Wish to be (Past 1 Month) No 025 12:31 PM KARENT Katlyn Law 2. Non-Specific Active Suici corine Thoughts (Past 1 Month) No 01/17/2025 12:31 PM EDT Nayeli Law 6. Suicidal Behavior (Lifetime) No 12:31 PM EDT Katlyn Law documented as of this encounter Medications at Time of Discharge ALPRAZolam (Xanax) 0.25 MG tablet Take 1 tablet (0.25 mg) by mouth 1 (one) time each day if needed. 06/04/2021 calcium carbonate-vitami n D (Os-[place] 500/200 D-3) 500-200 MG-UNIT tablet TAKE TABLET 2 TABLETS DAILY 06/16/2012 EQ Aspirin Adult Low Dose 81 MG EC tablet 02/19/2021 ezetimibe (Zetia) 10 MG tablet Take 1 tablet (10 mg) by mouth 1 (one) time each day. levothyroxine (Synthroid, Levoxyl) 112 MCG tabletIndication s:Papillary carcinoma, follicular variant Take 1 tablet by mouth daily. Dose reduction 90 tablet 3 01/17/2025 metoprolol succinate XL (Toprol-XL) 25 MG 24 hr tabletIndication s:Palpitations Take 1 tablet by mouth daily. Do not crush or chew. 90 tablet 3 01/17/2025 nitroglycerin (Nitrostat) 0.4 MG SL tablet 04/15/2021 Pitavastatin Magnesium 4 MG tablet Take by mouth daily. documented as of this encounter Plan of Treatment Upcoming Encounters Date Type Department Care Team (Late st Contact Info) Description 12/19/2025 12:30 PM EDT Clinical Support [facility] [address] [facility]nd [place] [address] 12/19/2025 1:00 PM EDT Office Visit [facility] [address] [facility] [place] [address] Jerilyn Cisse, SPEECH AND LANGUAGE SPECIALIST, [facility] [address] [facility] [address] [place] [address] documented as of this encounter Procedures Procedure Name Priority Date/Time Associated Diagnosis Comments US HEAD NECK SOFT TISSUE Routine 01/17/2025 11:36 AM EDT Papillary carcinoma, follicular variant documented in this encounter Results * US Head Neck Soft Tissue (01/17/2025 11:36 AM EDT) Anatomical Region Laterality Modality Head, Neck Ultrasound Impressions 01/17/2025 5:15 PM EDT No sonographic evidence of disease recurrence within the neck. CRITICAL RESULT: No. COMMUNICATION: Per this written report. By electronically signing this report, I, the attending physician, attest that I have personally reviewed the images/data for the above examination(s) and agree with the final edited report. Drafted by Andrew Tinoco MD on 01/17/2025 2:53 PM Final report signed by Ekta Oliva MD on 01/17/2025 5:15 PM Narrative 01/17/2025 5:15 PM EDT CLINICAL INDICATION: Thyroid neoplasm. Status post thyroidectomy. Followup. TECHNIQUE: Neck ultrasound. COMPARISON: Nuclear medicine thyroid scan 09/11/2022, ultrasound head and neck 02/17/2030 FINDINGS: Prior thyroidectomy is noted. There is no obvious recurrent mass within the thyroidectomy bed. No morphologically abnormal lymph nodes are detected. What is mentioned as a separate nodule isoechoic to the submandibular gland by the technologist on image 54 appears slightly exophytic but contiguous with the gland parenchyma proper on cine A14. Procedure Note Ekta Oliva MD - 01/17/2025 CLINICAL INDICATION: Thyroid neoplasm. Status post thyroidectomy. Followup. TECHNIQUE: Neck ultrasound. COMPARISON: Nuclear medicine thyroid scan 09/11/2022, ultrasound head and neck02/17/2030 FINDINGS: Prior thyroidectomy is noted. There is no obvious recurrent mass withinthe thyroidectomy bed. No morphologically abnormal lymph nodes aredetected. What is mentioned as a separate nodule isoechoic to thesubmandibular gland by the technologist on image 54 appears slightlyexophytic but contiguous with the gland parenchyma proper on cine A14. IMPRESSION: No sonographic evidence of disease recurrence within the neck. CRITICAL RESULT: No. COMMUNICATION: Per this written report. By electronically signing this report, I, the attending physician, attestthat I have personally reviewed the images/data for the aboveexamination(s) and agree with the final edited report. Drafted by Andrew Tinoco MD on 01/17/2025 2:53 PM Final report signed by Ekta Oliva MD on 01/17/2025 5:15 PM us Jerilyn Cisse APRN, LPN RN HOSPICE IMG US PROCEDURES Fi nal Result documented in this encounter Visit Diagnoses Diagnosis Papillary carcinoma, follicular variant Malignant neoplasm of thyroid gland documented in this encounter Additional Health Concerns Assessment Noted Time A fall risk assessment has been complete d for the patient 01/17/2025 12:25 PM EDT A Body Mass Index follow-up plan has been documented for the patient 02/22/2024 6:02 PM EDT documented as of this encounter Care Teams Store Sales Consultant Relationship Specialty Start Date End Date Nacho Davidson MD [address] [place] [address] [place] [address] PCP - General 10/25/20 Lisa Price APRN [facility] [address] Nurse Practitioner Medical Oncology 02/20/22 documented as of this encounter
--- OUTSIDE RECORDS SUMMARY | 2025-01-17 12:30 | XMS_ITS | Encounter Summary ---
Author Organization [facility] Address [address] [id number] Care Team Providers Care Supervisor [employer] Name Role Phone Nacho Davidson MD Primary Care Provider [phone] Lisa Price CULINARY ASSISTANT Unavailable [phone] Reason for Visit * Reason Comments Labs Encounter Details Date Type Department Care Team ([facility] st Contact Info) Description 01/17/2025 12:30 PM EDT Clinical Support [facility] [address] [place] [address] Social History Tobacco Use Types Packs/Day Years [...] (Past 1 Month) No 025 12:31 PM EDT Katlyn Law 2. Non-Specific Active Suici corine Thoughts (Past 1 Month) No 01/17/2025 12:31 PM EDT Nayeli Law R 6. Suicidal Behavior (Lifetime) No 12:31 PM EDT Katlyn Law documented as of this encounter Plan of Treatment Upcoming Encounters Date Type Department Care Team (Late st Contact Info) Description 12/19/2025 12:30 PM EDT Clinical Support [facility] [address] [facility], [address]nd [place] [address] 12/19/2025 1:00 PM EDT Office Visit Pav [facility] [address] [facility], [address] [place] [address] Jerilyn Cisse APRN, [facility] [address] [phone] documented as of this encounter Visit Diagnoses Not on filedocumented in this encounter Additional Health Concerns Assessment Noted Time A fall risk assessment has been complete d for the patient 01/17/2025 12:25 PM EDT A Body Mass Index follow-up plan has been documented for the patient 02/22/2024 6:02 PM EDT documented as of this encounter Care Teams Supervisor [employer] Relationship Specialty Start Date End Date Nacho Davidson MD [address] [place] [id number] PCP - General 10/25/20 Lisa Price APRN [address] [address] Nurse Practitioner Medical Oncology 02/20/22 documented as of this encounter
--- OUTSIDE RECORDS SUMMARY | 2025-01-17 13:00 | XMS_ITS | Encounter Summary ---
Author Organization [facility] Address [address] [place] [address] Care Team Providers Care Metalsmith Name Role Phone Nacho Davidson MD Primary Care Provider [phone] Lisa Pirce NET TECHNICAL ARCHITECT Unavailable [phone] Reason for Visit * Reason Comments Follow-up Hypothyroidism Thyroid Cancer Encounter Details Date Type Department Care Team ([facility] Contact Info) Description 01/17/2025 1:00 PM EDT Office Visit Pav [facility] Res[facility] [address] [place] [address] Jerilyn Cisse, NET TECHNICAL ARCHITECT, CRACKER SPRAYER [address] [facility] [address] [place] [address] Papillary carcinoma, follicular variant (Primary Dx); Postoperative hypothyroidism; Essential (primary) hypertension; Medication management; Palpitations Social History Tobacco Use Types Packs/Day Years Used Date Smoking Tobacco: Former Cigarettes 1 18 1 974 - 09/02/1981 Smokeless Tobacco: Never Tobacco Cessation:Counseling Given: No Alcohol Use Standard Drinks/Week Comments No 0 [...] on file documented as of this encounter Last Filed Vital Signs Vital Sign Reading Time Taken Comments Blood Pressure 131/79 01/17/2025 12:22 PM EDT Pulse 74 01/17/2025 12:22 PM EDT Temperature 36.7 C (98 F) 01/17/2025 12:22 PM EDT Respiratory Rate 18 01/17/2025 12:22 PM EDT Oxygen Saturation 99% 01/17/2025 12:22 PM EDT Inhaled Oxygen Concentration - - Weight 67.8 kg (149 lb 7.6 oz) 01/17/2025 12:22 PM EDT Height 181 cm (5' 11.26 ) 01/17/2025 12:22 PM ED T Body Mass Index 20.7 01/17/2025 12:22 PM EDT documented in this encounter Functional Status * Calculated C-SSRS [...] Katlyn Law documented as of this encounter Miscellaneous Notes * Patient Instructions - Jerilyn Cisse APRN, CNS - 01/17/2025 1:00 PM EDT Continue TSH suppressive therapy with Levothyroxine 112 mcg daily Labs locally week of 03/18/2025 with labslip given Labs here on same day as the 11 month followup appointment trevor/ Jerilyn * Progress Notes - Jerilyn Cisse APRN, CNS - 01/17/2025 1:00 PM EDT Patient ID: Seth Storm is a 64 y.o. male initially seen in consultation for Thyroid Carcinoma on 02/01/2006. The Primary Care provider is: Nacho Davidson MD. This visit is for follow-up/continued care. The patient was last seen in Thyroid Oncology Clinic on: 02/22/2024. Chief Complaint: This patient is seen for care/management/consultation of the following thyroid malignancy: papillary thyroid carcinoma, follicular variant. Other conditions that are specifically managed/monitored include: hypothyroidism and levothyroxine suppression therapy. 01/17/2025: Mr. Seth Storm returns 11 month follow-up of papillary thyroid carcinoma, follicular variant. Initial consultation date: 02/01/2006 Diagnosis: Papillary thyroid carcinoma: T1b N1b M0 Last clinic visit date 02/22/2024 Last lab draw 02/22/2024 Here w/ tumor markers drawn Today's visit 01/17/2025 Medications Dose Date initiated or dose change Levothyroxine mcg 125 mcg daily Since 2018 Anatomical imaging Last done Metzger findings WBS + TXT 04/14/2006 156.2 mCi ablation for uptake in the thyroid bed and an additional focus in thesuperior right neck representing a local metastasis (TSH 90.8, thyroglobulin 0.8 ng/mL). WBS 09/11/2022 Negative US neck 02/17/2022 No sonographic evidence of disease recurrence within the neck. Prior US negative as well on 07/20/2018 CT chest 05/20/2020 No evidence of thoracic metastasis. Previous CT on 09/04/2013 Thyroid cancer status 19 years w/ No evidence of disease noted with anatomical studies and with evaluation of tumor markers s/p 2005 I-131. TSH suppression goal Previous TSH suppression goal of <0.1 yet w/ SALVATORE, lightening up suppressionto midrange normal. Patient's thyroglobulin levels have been undetectable while on TSH suppressive therapy utilizing levothyroxine 125 mcg daily. Currently no evidence of disease recurrence. Previous labs now on chart below. Labs pending today US neck completed today yet report pending at time of appointment. Patient reports being fair. BP's are usually <115/<69 HR in 60s while on lisinopril 40 mg andamlodipine and metoprolol succinate 50 mg daily. He is to see his PCP later this week. No change with his memory issues. Tumor Size/Extent: T2: tumor >2cm & < or = 4cm: T2 (S): single focus Regional Lymph Nodes: N1b: positive nodes to any other regional site: Right Distant Metastases: M0: None Other Thyroid Pathology: Austin's Pertinent Current Features: No Evidence of Disease (SALVATORE) and TSH target is around 0.1 (typical suppression) Disease Sites and Status: Within Thyroid Gland (resected) and Cervical Nodes (resected/ablated) Karnofsky: 100: Normal: not affected by disease ECO: Fully active, able to carry on all pre-disease performance without restriction Status & Specific Issues: s/p total thyroidectomy and radioiodine ablation: for long-term follow-up. Genetic Testing Germline: Not Done Tumor: Not Done Chemotherapy: NA HPI: Summary of thyroid cancer care from initial consultation on 01/15/2006 to 2023: 02/22/2024: Mr. Seth Storm returns for 1 year follow-up of papillary thyroid carcinoma, follicular variant. This patient was first seen at the [facility] on 01/15/2006. On 10/13/2005 he underwent a total thyroidectomy for a ([place] confirmed) 1.5 cm papillary thyroid carcinoma (follicular variant) with focal thyroid capsular invasion but no extrathyroid invasion. On 04/14/2006 we administered 156.2 mCi I-131 ablation therapy for uptake in the thyroid bed and an additional focus in the superior right neck representing a local metastasis (TSH 90.8, thyroglobulin 0.8 ng/mL). Followup serial I-131 whole body scans (using hypothyroid prep and low iodine diet) have been negative since his initial I-131 therapy. Last WBS was 09/11/2022. The last negative neck ultrasound was in 2021. CT Chest studies have been negative with the last one on 05/20/2020. These studies were all reviewed by me with the patient today as well as his laboratory findings throughout the years. All thyroglobulin levels have been undetectable. Thyroid Related Surgeries Date: 10/13/2005 Hospital Site: Outside of : [facility] Type: Total Thyroidectomy Node Resection: None Pathology Description Pathology (as confirmed by review at [facility]) revealed a right 1.5 cm papillary thyroid carcinoma, follicular variant with focal thyroid capsular invasion, but no extrathyroidal invasion. 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 Extent of Resection: R0: No residual tumor Additional Findings: Tumor was dissected off of the right recurrent laryngeal nerve. Papillary Carcinoma Follicular Variant. T2: tumor >2cm & < or = 4cm T2 (S): single focus Regional Lymph Nodes NX: cannot be assessed. Distant Metastases MX: cannot be assessed. Other Thyroid Pathology Austin's . Radioiodine Therapy Date: 04/14/2006 Hospital Site: [facility] 131I Therapy Dose (mCi): 156.2 mCi. Emperic Hypothyroid: TSH 90.96 uIU/ml. Diet:. Low Iodine diet. No Iodine contrast exposure. Intent: Initial ablative. *Treatment ( +Dx scan). Thyroglobulin level: 0.8 ng/ml. TG Antibodies: Negative. Component Latest Ref Rng 07/09/2014 04/15/2015 02/14/2016 09/14/2016 08/23/2017 Free T4 0.8 - 1.7 ng/dL 1.5 1.6 1.7 <0.1 (L) 1.7 TSH 0.40 - 4.20 uIU/mL 0.16 (L) 0.11 (L) 0.03 (L) 50.91 (H) 0.02 (L) Thyroglobulin Antibody <1.8 IU/mL <1.0 <1.0 <1.0 <1.0 <1.0 Thyroglobulin <=34.0 ng/mL <0.1 0.1 <0.1 0.1 <0.1 Levothyroxine mcg 150 150 150 off 150 Comments 09/14/2016: WBS negative Component Latest Ref Rng 07/20/2018 06/19/2019 05/20/2020 04/24/2021 02/17/2022 Free T4 0.8 - 1.7 ng/dL 1.9 (H) 1.5 1.6 1.6 1.5 TSH 0.40 - 4.20 uIU/mL 0.02 (L) 0.06 (L) 0.23 (L) 0.21 (L) 0.48 Thyroglobulin Antibody <1.8 IU/mL <1.0 <1.0 <1.0 <1.0 <1.0 Thyroglobulin <=34.0 ng/mL 0.1 <0.1 0.1 0.1 0.1 Levothyroxine mcg 125 125 125 125 125 Comments 07/20/2018: discussed Survivorship Care Plan and Summary Component Latest Ref Rng 09/07/22 09/11/22 02/08/23 02/22/24 12/01/24 outside Free T4 0.8 - 1.7 ng/dL 1.5 1.7 1.6 1.6 TSH 0.40 - 4.20 uIU/mL 0.13 (L) 23.80 (H) 0.26 (L) 0.19 L 0.162 L Thyroglobulin Ab <1.8 IU/mL <1.0 <1.8 <0.1 Thyroglobulin <=34.0 ng/mL <0.1 <0.1 Chappell <1.0 Levothyroxine mcg 125 125 125 125 125 Comments 09/11/2022: WBS negative Data Review: The following portions of the chart were reviewed this encounter and updated as appropriate: Tobacco Allergies Meds Problems Med Hx Surg Hx Fam Hx Past Medical History: Diagnosis Date Conversions - Other Irritable Bowel Syndrome Conversions - Other Papillary Carcinoma Of The Thyroid Gland Family History Problem Relation Name Age of Onset Bipolar disorder Father Bipolar disorder Other Hypertension Mother Hypertension Father Past Surgical History: Procedure Laterality Date TONSILLECTOMY W/ ADENOIDECTOMY N/A Tonsillectomy With Adenoidectomy from [facility]my [facility]arest TOTAL THYROIDECTOMY Bilateral 2005 thyroid cancer VASECTOMY N/A Surgery Of Male Genitalia Vasectomy from Mommy Nearest Current Outpatient Medications on File Prior to Visit Medication Sig Dispense Refill ALPRAZolam (Xanax) 0.25 MG tablet Take 1 tablet (0.25 mg) by mouth 1 (one) time each day if needed. amLODIPine (Norvasc) 5 MG tablet Take 1 tablet (5 mg) by mouth 1 (one) time each day. 90 tablet 1 calcium carbonate-vitamin D (Os-[place] 500/200 D-3) 500-200 MG-UNIT tablet TAKE TABLET 2 TABLETS DAILY EQ Aspirin Adult Low Dose 81 MG EC tablet ezetimibe (Zetia) 10 MG tablet Take 1 tablet (10 mg) by mouth 1 (one) time each day. levothyroxine (Synthroid, Levoxyl) 125 MCG tablet Take 1 tablet (125 mcg) by mouth 1 (one) time each day. 90 tablet 3 lisinopril 40 MG tablet Take 1 tablet (40 mg) by mouth 1 (one) time each day. 90 tablet 1 metoprolol succinate XL (Toprol-XL) 50 MG 24 hr tablet Take 1 tablet (50 mg) by mouth 1 (one) time each day. 90 tablet 3 nitroglycerin (Nitrostat) 0.4 MG SL tablet Pitavastatin Magnesium 4 MG tablet Take by mouth daily. No current facility-administered medications on file prior to visit. Allergies Allergen Reactions Fexofenadine-Pseudoephed Er Unknown - Patient states they do not know rxn details Review of Systems Review of Systems Constitutional: Positive for fatigue. Negative for chills and diaphoresis. Brain fog HENT: Positive for postnasal drip. Negative for trouble swallowing. Respiratory: Negative. Negative for shortness of breath. Cardiovascular: Negative. Negative for chest pain and palpitations. I see cardiology yearly. Here are my BP and HR numbers. BP and HR appear low don't they? Gastrointestinal: Negative. Colonoscopy is up to date. Endocrine: Positive for cold intolerance. Genitourinary: Negative. Prostate issues, can't sit very long. Not had any followup in a while -urologist retired Musculoskeletal: Negative. Arthritis -general aches and pains Skin: Negative. Allergic/Immunologic: Negative. Neurological: Negative for dizziness, tremors and headaches. Noted memory changes - mainly names Psychiatric/Behavioral: Negative. Mood - pretty good Sleep sporadic - no change Visit Vitals BP 131/79 (BP Location: Right arm) Pulse 74 Temp 36.7 ??C (98 ??F) (Oral) Resp 18 Ht 1.81 m (5' 11.26 ) Wt 67.8 kg (149 lb 7.6 oz) SpO2 99% BMI 20.70 kg/m?? Smoking Status Former BSA 1.85 m?? Physical Exam: Physical Exam Vitals reviewed. Constitutional: Appearance: Normal appearance. He is normal weight. HENT: Head: Normocephalic. Eyes: Extraocular Movements: Extraocular movements intact. Pupils: Pupils are equal, round, and reactive to light. Neck: Comments: Thyroid absent. Cardiovascular: Rate and Rhythm: Normal rate and regular rhythm. Pulses: Normal pulses. Heart sounds: Normal heart sounds. Pulmonary: Effort: Pulmonary effort is normal. Breath sounds: Normal breath sounds. Abdominal: General: Bowel sounds are normal. Palpations: Abdomen is soft. Musculoskeletal: General: Normal range of motion. Cervical back: Normal range of motion and neck supple. Right lower leg: No edema. Left lower leg: No edema. Lymphadenopathy: Cervical: No cervical adenopathy. Skin: General: Skin is warm and dry. Neurological: General: No focal deficit present. Mental Status: He is alert and oriented to person, place, and time. Mental status is at baseline. Psychiatric: Mood and Affect: Mood normal. Behavior: Behavior normal. Thought Content: Thought content normal. Judgment: Judgment normal. Billing Diagnosis 1. Papillary carcinoma, follicular variant 2. Postoperative hypothyroidism 3. Essential (primary) hypertension 4. Medication management 5. Palpitations Orders Placed This Encounter Procedures Free T4, Plasma Thyroid Stimulating Hormone, Plasma Thyroglobulin Antibody and Thyroglobulin (NELL or LC-MSMS) Free T4, Plasma Thyroid Stimulating Hormone, Plasma Thyroglobulin Assessments and Plans: 1) Papillary thyroid carcinoma: T1b N1b M0: This patient underwent a total thyroidectomy on 10/13/05 and then received 156.2 mCi I-131 on 04/14/06 with scan uptake in the thyroid remnant and a superior right lateral metastatic node (thyroglobulin 0.8 ng/mL, TSH 90.96). Subsequent I-131 scans have beennegative with stimulated thyroglobulin levels at 0.1 ng/mL or less. Structural imaging studies havebeen negative with the last neck ultrasound on 02/17/22.The last negative non-contrast Chest CT was on 05/20/20 (aside from coronary artery calcifications). Thyroglobulin levels have been undetectable to 0.1 ng/mL since 2014. == No additional WBS will be planned unless there is a change in TG or TG Ab levels ==repeat US neck today pending == tumor markers pending today == RTC 11 months with labs 2) Postsurgical hypothyroidism: Patient is currently on 125 mcg dose of levothyroxine to maintain asuppressed TSH around 0.1 since 2019. ==Now 19 years s/p I-131 and w/ SALVATORE, will lighten TSH therapy to lower end of normal. ==labs today ==Likely reducing dose levothyroxine 112 mcg daily w/ labs locally with labslip given for week of 03/18/2025 3) Blood pressure and heart rate: The patient remains on metoprolol succinate 50 mg daily, amlodipine 5 mg daily and lisinopril 40 mg daily. Patient continues w/cardiology yearly. == Blood pressure is 131/79 and the heart rate is 74 bpm today ==I am still writing the metoprolol succinate 50 mg daily. Due to list of home BP and HR for the past few weeks and HR being in the 60's most days, pt to reduce the metoprolol succinate to 25 mg daily in light of me also reducing the levothyroxine dose. He states he has lots of the 50 mg tablets. He may cut those in half. ==Due to pt having home BPs that are <115/<69, I asked that he take 0.5 tablet of the amlodipine and continue on the lisinopril until he sees his PCP later this week so that he can make furtheradjustments in the HTN medications as PCP has assumed the responsibility of patient's blood pressure. Counseling Documentation: The patient was counseled regarding diagnostic results, prognosis, risks and benefit of treatment options, risk factor reductions, instructions for management, patient and family education, medication changes, impressions, and importance of compliance with treatment. Education provided was verbal co unseling. Additional time was spent in care coordination including medical record review. The total time of encounter was 58 minutes and greater than 50% of the visit was spent in counseling/coordination of care. . ADDENDUM: Continue the reduction of levothyroxine from 125 to 112 mcg daily as TSH is well suppressed and we are lightening the TSH goal to lower end of normal. Tumor markers- thyroglobulin and thyroglobulin antibodies are both undetectable indicating no evidence of thyroid cancer recurrence at this time. US neck is negative: IMPRESSION: No sonographic evidence of disease recurrence within the neck. Component Latest Ref Rng 01/17/2025 Thyroglobulin Antibody <4.0 IU/mL <1.0 TSH 0.40 - 4.20 uIU/mL 0.21 (L) Free T4 0.8 - 1.7 ng/dL 1.5 Thyroglobulin < 0.1 ng/mL <0.1 Levothyroxine mcg 125 red 112 Jerilyn GUNDERSON [facility] documented in this encounter Plan of Treatment Upcoming Encounters Date Type Department Care Team (Late st Contact Info) Description 12/19/2025 12:30 PM EDT Clinical Support Pav [facility] [address] [place] [address] 12/19/2025 1:00 PM EDT Office Visit Pav [facility] Res[facility] [address] [facility] [place] [address] Jerilyn Cisse, NET TECHNICAL ARCHITECT, CRACKER SPRAYER [address] [place] [address] Scheduled Orders Name Type Priority Associated Diagnoses Orde r Schedule Free T4, Plasma Lab Routine Papillary carcinoma, follicular variant Expected: 03/19/2025 (Approximate), Expires: 07/21/2026 Thyroid Stimulating Hormone, Plasma Lab Routine Papillary carcinoma, follicular variant Expected: 03/19/2025 (Approximate), Expires: 07/21/2026 documented as of this encounter Procedures Procedure Name Priority Date/Time Associated Diagnosis Comments THYROGLOBULIN ANTIBODY AND THYROGLOBULIN (NELL OR LC-MSMS) Routine 01/17/2025 12:30 PM EDT Papillary carcinoma, follicular variant THYROGLOBULIN (INHOUSE- REFLEX ONLY) Routine 01/17/2025 12:30 PM EDT Papillary carcinoma, follicular variant TSH Routine 01/17/2025 12:30 PM EDT Papillary carcinoma, follicular variant FREE T4, PLASMA Routine 01/17/2025 12:30 PM EDT Papillary carcinoma, follicular variant documented in this encounter Results * Thyroglobulin (01/17/2025 12:30 PM EDT) Thyroglobulin (Inhouse) <0.1 <=31.8 ng/mL 01/17/2025 4:40 PM EDT [facility] Blood Venous blood specimen / Unknown Venipuncture / Unknown 01/17/2025 12:30 PM EDT 01/17/2025 12:52 PM EDT Narrative [facility] - 01/17/2025 4:40 PM EDT Performed by AMX 2nd generation TG chemiluminescent immunoassay. Results obtained with different test methods or kits cannot be used interchangeably. Jerilyn Cisse APRN, CRACKER SPRAYER LAB BLOOD ORDERABLES Final Result Performing Organization Address City/[facility]/[place] [address] * Thyroglobulin Antibody and Thyroglobulin (NELL or LC-MSMS) (01/17/2025 12:30 PM EDT) Thyroglobulin Antibody <1.0 <4.0 IU/mL 01/17/2025 3:59 PM EDT [facility] Blood Venous blood specimen / Unknown Venipuncture / Unknown 01/17/2025 12:30 PM EDT 01/17/2025 12:52 PM EDT Jerilyn Cisse APRN, CRACKER SPRAYER LAB BLOOD ORDERABLES Final Result Performing Organization Address [facility]/[place] [address] * (ABNORMAL) Thyroid Stimulating Hormone, Plasma (01/17/2025 12:30 PM EDT) Thyroid Stimulating Hormone, Plasma 0.21(L) 0.40 - 4.20 uIU/mL 01/17/2025 3:31 PM EDT [facility] Blood Venous blood specimen / Unknown Venipuncture / Unknown 01/17/2025 12:30 PM EDT 01/17/2025 12:53 PM EDT Jerilyn Cisse APRN, CRACKER SPRAYER LAB BLOOD ORDERABLES Final Result Performing Organization Address City/[facility]/[place] [address] * Free T4, Plasma (01/17/2025 12:30 PM EDT) Free T4, Plasma 1.5 0.8 - 1.7 ng/dL 01/17/2025 3:31 PM EDT [facility] Blood Venous blood specimen / Unknown Venipuncture / Unknown 01/17/2025 12:30 PM EDT 01/17/2025 12:53 PM EDT Jerilyn Cisse NET TECHNICAL ARCHITECT, CRACKER SPRAYER LAB BLOOD ORDERABLES Final Result [facility] [address] [place] [address] documented in this encounter Visit Diagnoses Diagnosis Papillary carcinoma, follicular variant- Primary Malignant neoplasm of thyroid gland Postoperative hypothyroidism Postsurgical hypothyroidism Essential (primary) hypertension Unspecified essential hypertension Medication management Palpitations documented in this encounter Additional Health Concerns Assessment Noted Time A fall risk assessment has been complete d for the patient 01/17/2025 12:25 PM EDT A Body Mass Index follow-up plan has been documented for the patient 02/22/2024 6:02 PM EDT documented as of this encounter Care Teams Metalsmith Relationship Specialty Start Date End Date Nacho Davidson MD [address] [place] [address] PCP - General 10/25/20 Lisa Price APRN [address] [address] Nurse Practitioner Medical Oncology 02/20/22 documented as of this encounter
--- OUTSIDE RECORDS SUMMARY | 2025-01-19 15:00 | XMS_ITS | Encounter Summary ---
Author Organization [facility] Address [address] [place] [address] Care Team Providers Care Ambulance Driver Paramedic Name Role Phone Nacho Davidson MD Primary Care Provider + Reason for Referral * MRI/CAT/PET Scan (Routine) - Closed Specialty Diagnoses / Procedures Referred By Contac t Referred To Contact Radiology Diagnoses New onset of headache in cancer patient History of thyroid cancer Cognitive changes Brain fog Procedures MRI Brain Without Contrast Nacho Davidson MD [address] [address] Phone: tel: fax: [address] [address] Phone: tel: Referral ID Status Reason Start Date Expiration Date Visits Re quested Visits Authorized [id number] Closed 01/19/2025 04/20/2026 1 1 Reason for Visit * Reason Comments FU cognitive issues Encounter Details Date Type Department Care Team (Late st Contact Info) Description 01/19/2025 3:00 PM EDT Office Visit [facility] [address] [place] [address] Nacho Davidson MD [address] [facility] [address] New onset of headache in cancer patient (Primary Dx); History of thyroid cancer; Cognitive changes; Brain fog; Anxiety about health Social History Tobacco Use Types Packs/Day Years Used Date Smoking Tobacco: Former Cigarettes 0.5 2 Q uit: 1982 Smokeless Tobacco: Never Alcohol Use Standard Drinks/Week Comments Never 0 (1 standard drink = 0.6 oz pur e alcohol) PHQ-2 Answer Date Recorded Patient Health Questionnaire-2 Score 0 08/29/2024 Sex and Gender Information Value Date Recorded Sex Assigned at Not on file Legal Sex Male 10:19 AM EST Gender Identity Not on file Sexual Orientation Not on file documented as of this encounter Last Filed Vital Signs Vital Sign Reading Time Taken Comments Blood Pressure 118/60 01/19/2025 2:42 PM EDT Pulse 67 01/19/2025 2:42 PM EDT Temperature 36.9 C (98.4 F) 01/19/2025 2:42 PM EDT Respiratory Rate 20 01/19/2025 2:42 PM EDT Oxygen Saturation 97% 01/19/2025 2:42 PM EDT Inhaled Oxygen Concentration - - Weight 68.7 kg (151 lb 6.4 oz) 01/19/2025 2:42 P M EDT Height 182.9 cm (6') 01/19/2025 2:42 PM EDT Body Mass Index 20.53 01/19/2025 2:42 PM EDT documented in this encounter Progress Notes * Nacho Davidson MD - 01/19/2025 3:00 PM EDT Images from the original note were not included. Chief Complaint Patient presents with FU cognitive issues Subjective Seth Storm is a 64 y.o. who presents for continued complaints of head pressure and brain fog. He admits he is worried there is something very wrong inside . He reports multiple episodes throughout the day where he will feel like he is having a hard time thinking. He notices increasing fatigue. His accompanies him and while she has not noticed any mental status changes she does endorse episodes where he does not look well rested or seems excessively tired. He does not snore and there has been no witnessed apnea. He scheduled time for 8 hours of sleep per night but admits he awakens about 4 times per night. Most of the time he is able to return to sleep without difficulty. This has been his sleeping behavior for several years Objective Vital Signs: BP 118/60 Pulse 67 Temp 98.4 ??F (36.9 ??C) Resp 20 Ht 182.9 cm (72 ) Wt 68.7 kg (151 lb 6.4 oz) SpO2 97% BMI 20.53 kg/m?? Physical Exam Vitals reviewed. Constitutional: Appearance: Normal appearance. Neurological: Mental Status: He is alert. Result Review The following data was reviewed by: Nacho Davidson MD on 01/19/2025: TSH 12/01/2024 11:47 TSH TSH 0.162 Data reviewed : [place] Sleepiness Scale 3 Assessment and Plan Diagnoses and all orders for this visit: 1. New onset of headache in cancer patient (Primary) - MRI Brain Without Contrast; Future 2. History of thyroid cancer - MRI Brain Without Contrast; Future 3. Cognitive changes - MRI Brain Without Contrast; Future 4. Brain fog - MRI Brain Without Contrast; Future 5. Anxiety about health Plan: Patient has a new problem with an uncertain prognosis. All symptoms are nonspecific there hasbeen no improvement with an adequate period of observation. I did explain to the patient and his while he describes some symptoms of sleep apnea he does not have any signs of sleep apnea. He hadrecent reduction in his metoprolol and blood pressures have consistently been in the low 100s. Exter nal physician suggested possibly reducing amlodipine. Patient is not describing any symptoms of orthostasis. Because of his history of thyroid cancer we will proceed with MRI of the brain to rule outremote metastases or potential silent cerebrovascular event. MRI will be arranged at [facility] Follow Up No follow-ups on file. Patient was given instructions and counseling regarding his condition or for health maintenance advice. Please see specific information pulled into the AVS if appropriate. documented in this encounter Plan of Treatment Upcoming Encounters Date Type Department Care Team (Late st Contact Info) Description 02/05/2026 2:15 PM EDT Office Visit [facility] [address] [facility] [place] [phone] Nacho Davidson MD [address] [facility] [place] [address] documented as of this encounter Results * MRI Brain Without Contrast (02/04/2025 2:20 PM EDT) Anatomical Region Laterality Modality Head, Neck N/A Magnetic Resonan ce 02/04/2025 7:23 PM EDT Impressions 02/04/2025 7:25 PM EDT Impression: 1.No acute intracranial process identified. 2.Findings suggestive of mild chronic small vessel ischemic disease. Electronically Signed: Artie Ortega MD 02/04/2025 7:25 PM EDT Workstation ID: [id number] Narrative 02/04/2025 7:25 PM EDT MRI BRAIN WO CONTRAST Date of Exam: 02/04/2025 2:00 PM EDT Indication: new onset headache, history of thyroid cancer, complaints of brain fog/mental status changes. Comparison: None available. Technique: Routine multiplanar/multisequence sequence images of the brain were obtained without contrast administration. Findings: No acute infarction, intracranial hemorrhage, or extra-axial collection is identified. The ventricles appear normal in caliber, with no evidence of mass effect or midline shift. The basal cisterns appear patent. The midline structures appear intact. The globes and orbits appear intact. The intracranial vascular flow-voids appear patent. Scattered foci of periventricular and subcortical white matter FLAIR hyperintensities are nonspecific, but likely the sequela of mild chronic small vessel ischemic disease. Procedure Note Artie Ortega MD - 02/04/2025 MRI BRAIN WO CONTRAST Date of Exam: 02/04/2025 2:00 PM EDT Indication: new onset headache, history of thyroid cancer, complaints ofbrain fog/mental status changes. Comparison: None available. Technique: Routine multiplanar/multisequence sequence images of the brainwere obtained without contrast administration. Findings: No acute infarction, intracranial hemorrhage, or extra-axial collection isidentified. The ventricles appear normal in caliber, with no evidence ofmass effect or midline shift. The basal cisterns appear patent. The midline structures appear intact. The globes and orbits appear intact.The intracranial vascular flow-voids appear patent. Scattered foci ofperiventricular and subcortical white matter FLAIR hyperintensities arenonspecific, but likely the sequela of mild chronic small vessel ischemic disease. IMPRESSION: Impression: 1.No acute intracranial process identified. 2.Findings suggestive of mild chronic small vessel ischemic disease. Electronically Signed: Artie Ortega MD 02/04/2025 7:25 PM EDT Workstation ID: [id number] Nacho Davidson MD IM MRI ORDERABLES Final Result documented in this encounter Visit Diagnoses Diagnosis New onset of headache in cancer patient- Primary History of thyroid cancer Personal history of malignant neoplasm of thyroid Cognitive changes Brain fog Anxiety about health New onset of headache in cancer patient History of thyroid cancer Personal history of malignant neoplasm of thyroid Cognitive changes Brain fog documented in this encounter Care Teams Ambulance Driver Paramedic Relationship Specialty Start Date End Date Nacho Davidson MD [address] [place] [id number] PCP - General Family Medicine 07/02/23 documented as of this encounter
--- OUTSIDE RECORDS SUMMARY | 2025-02-02 15:30 | XMS_ITS | Encounter Summary ---
Author Organization [facility] Address [address] [place] [address] Care Team Providers Care Linen Room Attendant Name Role Phone Nacho Davidson MD Primary Care Provider + Reason for Visit * Reason Comments Medicare Wellness-subsequent Encounter Details Date Type Department Care Team (Late st Contact Info) Description 02/02/2025 3:30 PM EDT Office Visit [facility] [address] [place] [address] Nacho Davidson MD [address] [place] [address] Medicare annual wellness visit, subsequent (Primary Dx) Social History Tobacco Use Types Packs/Day Years Used Date Smoking Tobacco: Former Cigarettes 0.5 2 Q uit: 1982 Smokeless Tobacco: Never Alcohol Use Standard Drinks/Week Comments Never 0 (1 standard drink = 0.6 oz pur e alcohol) PHQ-2 Answer Date Recorded Patient Health Questionnaire-2 Score 0 02/02/2025 Sex and Gender Information Value Date Recorded Sex Assigned at Not on file Legal Sex Male 10:19 AM EST Gender Identity Not on file Sexual Orientation Not on file documented as of this encounter Last Filed Vital Signs Vital Sign Reading Time Taken Comments Blood Pressure 108/65 02/02/2025 3:07 PM EDT Pulse 65 02/02/2025 3:07 PM EDT Temperature 36.8 C (98.3 F) 02/02/2025 3:07 PM EDT Respiratory Rate 20 02/02/2025 3:07 PM EDT Oxygen Saturation 98% 02/02/2025 3:07 PM EDT Inhaled Oxygen Concentration - - Weight 68.9 kg (151 lb 12.8 oz) 02/02/2025 3:07 PM EDT Height 182.9 cm (6') 02/02/2025 3:07 PM EDT Body Mass Index 20.59 02/02/2025 3:07 PM EDT documented in this encounter Functional Status documented as of this encounter Progress Notes * Nacho Davidson MD - 02/02/2025 3:30 PM EDT Subjective The ABCs of the Annual Wellness Visit Medicare Wellness Visit Seth Storm is a 65 y.o. patient who presents for a Medicare Wellness Visit. The following portions of the patient's history were reviewed and updated as appropriate: allergies, current medications, past family history, past medical history, past social history, past surgical history, and problem list. Compared to one year ago, the patient's physical health is worse. Compared to one year ago, the patient's mental health is the same. Recent Hospitalizations: He was not admitted to the hospital during the last year. Current Medical Providers: Patient Care Team: Nacho Davidson MD as PCP - General (Family Medicine) Outpatient Medications Prior to Visit Medication Sig Dispense Refill ALPRAZolam (XANAX) 0.25 MG tablet Take 1 tablet by mouth Daily As Needed for Anxiety. amLODIPine (NORVASC) 5 MG tablet Take 1 tablet by mouth Daily. 90 tablet 1 aspirin 81 MG oral suspension Take 81 mL by mouth 1 (One) Time. ezetimibe (ZETIA) 10 MG tablet TAKE 1 TABLET BY MOUTH ONCE DAILY 90 tablet 1 levothyroxine (SYNTHROID, LEVOTHROID) 112 MCG tablet Take 1 tablet by mouth Daily. lisinopril (PRINIVIL,ZESTRIL) 40 MG tablet Take 1 tablet by mouth Daily. 90 tablet 1 metoprolol succinate XL (TOPROL-XL) 25 MG 24 hr tablet Take 1 tablet by mouth Daily. nitroglycerin (NITROSTAT) 0.4 MG SL tablet 1 tablet. Pitavastatin Calcium 4 MG tablet Take 1 tablet by mouth Daily. vitamin B-12 (CYANOCOBALAMIN) 1000 MCG tablet Take 1 tablet by mouth Daily. No facility-administered medications prior to visit. No opioid medication identified on active medication list. I have reviewed chart for other potential high risk medication/s and harmful drug interactions in the elderly. Aspirin is on active medication list. Aspirin use is indicated based on review of current medical condition/s. Pros and cons of this therapy have been discussed today. Benefits of this medication outweigh potential harm. Patient has been encouraged to continue taking this medication. . 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 ACP discussion was held with the patient during this visit. Patient has an advance directive (not in EMR), copy requested. Objective Vitals: 02/02/25 1507 BP: 108/65 Pulse: 65 Resp: 20 Temp: 98.3 ??F (36.8 ??C) SpO2: 98% Weight: 68.9 kg (151 lb 12.8 oz) Height: 182.9 cm (72 ) PainSc: 0-No pain Estimated body mass index is 20.59 kg/m?? as calculated from the following: Height as of this encounter: 182.9 cm (72 ). Weight as of this encounter: 68.9 kg (151 lb 12.8 oz). BMI is within normal parameters. No other follow-up for BMI required. Does the patient have evidence of cognitive impairment? No Health Risk Assessment Smoking Status: Social History Tobacco Use Smoking Status Former Current packs/day: 0.00 Average packs/day: 0.5 packs/day for 2.0 years (1.0 ttl pk-yrs) Types: Cigarettes Quit date: 1982 Years since quittin.6 Smokeless Tobacco Never Alcohol Consumption: Social History Substance and Sexual Activity Alcohol Use Never Fall Risk Screen STEADI Fall Risk Assessment was completed, and patient is at LOW risk for falls.Assessment completed on:02/02/2025 Depression Screening Little interest or pleasure in doing things? Not at all Feeling down, depressed, or hopeless? Not at all PHQ-2 Total Score 0 Health Habits and Functional and Cognitive Screenin02/02/2025 3:13 PM Functional & Cognitive Status Do you have difficulty preparing food and eating? No Do you have difficulty bathing yourself, getting dressed or grooming yourself? No Do you have difficulty using the toilet? No Do you have difficulty moving around from place to place? No Do you have trouble with steps or getting out of a bed or a chair? No Current Diet Well Balanced Diet Dental Exam Up to date Eye Exam Not up to date Exercise (times per week) 0 times per week Current Exercises Include No Regular Exercise Do you need help using the phone? No Are you deaf or do you have serious difficulty hearing? No Do you need help to go to places out of walking distance? No Do you need help shopping? No Do you need help preparing meals? No Do you need help with housework? No Do you need help with laundry? No Do you need help taking your medications? No Do you need help managing money? No Do you ever drive or ride in a car without wearing a seat belt? No Have you felt unusual fatigue (could be tiredness), stress, anger or loneliness in the last month? No Who do you live with? Spouse If you need help, do you have trouble finding someone available to you? No Have you been bothered in the last four weeks by sexual problems? No Do you have difficulty concentrating, remembering or making decisions? No Age-appropriate Screening Schedule: Refer to the list below for future screening recommendations based on patient's age, sex and/or medical conditions. Orders for these recommended tests are listed in the plan section. The patient has been provided with a written plan. Health Maintenance List Health Maintenance Topic Date Due TDAP/TD VACCINES (1 - Tdap) Never done ZOSTER VACCINE (1 of 2) Never done HEPATITIS C SCREENING Never done LIPID PANEL 10/22/2024 COVID-19 Vaccine ( season) 2025 (Originally 02/13/2024) INFLUENZA VACCINE 03/14/2025 ANNUAL WELLNESS VISIT 02/02/2026 COLORECTAL CANCER SCREENING 06/24/2028 Pneumococcal Vaccine 50+ Completed AAA SCREEN ONCE Completed [facility] Preventative Services Quick Reference Risk Factors Identified During Encounter Immunizations Discussed/Encouraged: Influenza and COVID19 Dental Screening Recommended Vision Screening Recommended Chronic Care visits with specialists as directed The above risks/problems have been discussed with the patient. Pertinent information has been shared with the patient in the After Visit Summary. An After Visit Summary and PPPS were made available to the patient. Follow Up: Next Medicare Wellness visit to be scheduled in 1 year. Assessment & Plan Follow Up: No follow-ups on file. documented in this encounter Plan of Treatment Upcoming Encounters Date Type Department Care Team (Late st Contact Info) Description 02/05/2026 2:15 PM EDT Office Visit [facility] [address] [place] [address] Nacho Davidson MD [address] [place] [address] documented as of this encounter Visit Diagnoses Diagnosis Medicare annual wellness visit, subsequent- Primary documented in this encounter Care Teams Linen Room Attendant Relationship Specialty Start Date End Date Nacho Davidson MD [address] [place] [address] PCP - General Family Medicine 07/02/23 documented as of this encounter
--- OUTSIDE RECORDS SUMMARY | 2025-02-04 13:53 | XMS_ITS | Encounter Summary ---
Author [facility] Address [address] [place] [address] Care Team Providers Care Zone Maintenance Technician Name Role Phone Nacho Davidson MD Primary Care Provider + Reason for Referral * MRI/CAT/PET Scan (Routine) - Closed Specialty Diagnoses / Procedures [facility] Referred To Contact Radiology Diagnoses New onset of headache in cancer patient History of thyroid cancer Cognitive changes Brain fog Procedures MRI Brain Without Contrast Nacho Davidson MD [facility] [place] [address] Phone: tel: fax: [address] [address] Phone: tel: Referral ID Status Reason Start Date Expiration Date Visits Re quested Visits Authorized [id number] Closed 01/19/2025 04/20/2026 1 1 Reason for Visit * MRI/CAT/PET Scan (Routine) - Closed Specialty Diagnoses / Procedures [facility] Referred To Contact Radiology Diagnoses New onset of headache in cancer patient History of thyroid cancer Cognitive changes Brain fog Procedures MRI Brain Without Contrast Nacho Davidson MD [address] [place] [address] Phone: tel: fax: [address] [address] Phone: tel: Referral ID Status Reason Start Date Expiration Date Visits Re quested Visits Authorized [id number] Closed 01/19/2025 04/20/2026 1 1 Encounter Details Date Type Department Care Team (Latest Contact Info) Description 02/04/2025 1:53 PM EDT - 02/04/2025 11:59 PM EDT Hospital Encounter [facility] [place] [address] [place] [address] [place] [address] Nacho Davidson MD [address] [place] [address] New onset of headache in cancer patient; History of thyroid cancer; Cognitive changes; Brain fog Discharge Disposition: Home or Self Care Social History Tobacco Use Types Packs/Day Years Used Date Smoking Tobacco: Former Cigarettes 0.5 2 Q uit: 1981 Smokeless Tobacco: Never Alcohol Use Standard Drinks/Week Comments Never 0 (1 standard drink = 0.6 oz pur e alcohol) PHQ-2 Answer Date Recorded Patient Health Questionnaire-2 Score 0 02/02/2025 Sex and Gender Information Value Date Recorded Sex Assigned at Not on file Legal Sex Male 10:19 AM EST Gender Identity Not on file Sexual Orientation Not on file documented as of this encounter Medications at Time of Discharge ALPRAZolam (XANAX) 0.25 MG tablet Take 1 tablet by mouth Daily As Needed for Anxiety. amLODIPine (NORVASC) 5 MG tabletIndications: Primary hypertension Take 1 tablet by mouth Daily. 90 tablet 1 12/01/2024 aspirin 81 MG oral suspension Take 81 mL by mouth 1 (One) Time. 06/17/2020 ezetimibe (ZETIA) 10 MG tabletIndications: Coronary artery disease involving buck[place] coronary artery of [place] heart without angina pectoris TAKE 1 TABLET BY MOUTH ONCE DAILY 90 tablet 1 10/11/2024 levothyroxine (SYNTHROID, LEVOTHROID) 112 MCG tablet Take 1 tablet by mouth Daily. 01/17/2025 lisinopril (PRINIVIL,ZESTRIL) 40 MG tabletIndications: Primary hypertension Take 1 tablet by mouth Daily. 90 tablet 1 12/01/2024 metoprolol succinate XL (TOPROL-XL) 25 MG 24 hr tablet Take 1 tablet by mouth Daily. 01/17/2025 mupirocin (BACTROBAN) 2 % ointment Apply 1 Application topically to the appropriate area as directed 3 (Three) Times a Day. 15 g 02/02/2025 nitroglycerin (NITROSTAT) 0.4 MG SL tablet 1 tablet. 10/16/2020 Pitavastatin Calcium 4 MG tablet Take 1 tablet by mouth Daily. 08/16/2020 vitamin B-12 (CYANOCOBALAMIN) 1000 MCG tablet Take 1 tablet by mouth Daily. documented as of this encounter Plan of Treatment Upcoming Encounters Date Type Department Care Team (Late st Contact Info) Description 02/05/2026 2:15 PM EDT Office Visit [facility] [address] [place] [address] Nacho Davidson MD [address] [place], [place] [id number] documented as of this encounter Procedures Procedure Name Priority Date/Time Associated Diagnosis Comments MRI BRAIN WO CONTRAST Routine 02/04/2025 2:20 PM EDT New onset of headache in cancer patient History of thyroid cancer Cognitive changes Brain fog documented in this encounter Results * MRI Brain Without Contrast (02/04/2025 2:20 PM EDT) Anatomical Region Laterality Modality Head, Neck N/A Magnetic Resonan ce 02/04/2025 7:23 PM EDT Impressions 02/04/2025 7:25 PM EDT Impression: 1.No acute intracranial process identified. 2.Findings suggestive of mild chronic small vessel ischemic disease. Electronically Signed: Artie Ortega MD 02/04/2025 7:25 PM EDT Workstation ID: [id number] Narrative 02/04/2025 7:25 PM EDT MRI BRAIN [...] MD 02/04/2025 7:25 PM EDT Workstation ID: [id number] Nacho Davidson MD IM MRI ORDERABLES Final Result documented in this encounter Visit Diagnoses Diagnosis New onset of headache in cancer patient History of thyroid cancer Personal history of malignant neoplasm of thyroid Cognitive changes Brain fog documented in this encounter Care Teams Zone Maintenance Technician Relationship Specialty Start Date End Date Nacho Davidson MD [address] [place] [address] PCP - General Family Medicine 07/02/23 documented as of this encounter
--- OUTSIDE RECORDS SUMMARY | 2025-03-17 08:42 | XMS_ITS | Encounter Summary ---
[facility] Address [address] [place] [address] Care Team Providers Care Network Intelligence Analyst Name Role Phone Nacho Davidson MD Primary Care Provider + Encounter Details Date Type Department Care Team (Late Contact Info) Description 09/03/2024 Results Follow-Up [facility] [address] [facility] [place] [address] Nacho Davidson MD [address] [place] [address] Social History Tobacco Use Types Packs/Day Years [...] on file documented as of this encounter Plan of Treatment Upcoming Encounters Date Type Department Care Team (Late Contact Info) Description 02/05/2026 2:15 PM EDT Office Visit [facility] [address] [place] [address] Nacho Davidson MD [address] [place] [address] documented as of this encounter Visit Diagnoses Not on filedocumented in this encounter Care Teams Network Intelligence Analyst Relationship Specialty Start Date End Date Nacho Davidson MD [address] [place] [address] PCP - General Family Medicine 07/02/23 documented as of this encounter
--- OUTSIDE RECORDS SUMMARY | 2025-03-17 08:42 | XMS_ITS | Encounter Summary ---
[facility] Address [address] [place] [address] Care Team Providers Care Washer Hand Name Role Phone Nacho Davidson MD Primary Care Provider + Encounter Details Date Type Department Care Team (Late Contact Info) Description 12/03/2024 Results Follow-Up [facility] [address] [facility] [place] [address] Nacho Davidson MD [address] [place] [address] Social History Tobacco Use Types [...] Description 02/05/2026 2:15 PM EDT Office Visit [facility] [address] [place] [address] Nacho Davidson MD [address] [facility] [place] [address] documented as of this encounter Visit Diagnoses Not on filedocumented in this encounter Care Teams Washer Hand Relationship Specialty Start Date End Date Nacho Davidson MD [address] [place] [address] PCP - General Family Medicine 07/02/23 documented as of this encounter
--- OUTSIDE RECORDS SUMMARY | 2025-03-17 08:42 | XMS_ITS | Data Portability ---
Author Organization [facility] Address [address] [facility] [address] [place] [address] Assessment No assessment recorded. Plan of Treatment Reminders Order Date Submit Date Provider Last Modified By Organization Details Last Modified Time Details Appointments None record ed. Lab None record ed. Referral None record ed. Procedures None record ed. Surgeries None record ed. Imaging XR, should er, 2 or more view 018 12/14/19 18 ddome Not available 8 15:32:13 Medication Orders None record ed. Patient TargetsNo targets recorded. Patient Instructions Encounter Date Encounter Id Patient Instructions Last Modified By Organization Details Last Modified Time 12/13/2017 [id number] shoulder pain: care instructions ddome Not available 12/13/2017 11:05:59 frozen shoulder: exercises ddome Not available 12/13/2017 15:32:13 Reason for Referral None Reported. Results Created Date Observation Date Name Description Value Unit Range Abnormal Flag Note LastModifiedBy Organization Detail LastModifiedTime 12/14/19 18 12/13/2017 XR, shoul westley, 2 or more view [place]ne rich [facility] [address] [place] [address] Garett jiménez Name: SETH jiménez : 958 Pat[address] t 4 Orderi ng Provid er: KIMBERLEE ANTOINE EXAM DATE: 2017 EXAM: XR RT SHOULD ER COMPLE TE RADIOG RAPHIC VIEWS: 3 COMPAR CHRISTOPHER: None. HISTOR Y: Right should er pain. FINDIN GS: The bones of the should er are normal in alignm ent. There is no eviden ce of fractu re. There is mild degene rative change s at the acromi oclavi cular joint and along the glenoh umeral joint. The acromi oclavi cular and coraco clavic ular spacin g is normal . The visual ized right ribs and right lung appear s normal . IMPRES JESSICA: 1. There are mild degene rative change s in the right should er. Interp reted By: Michelle patel MD Electr on ly Signed By: Michelle patel MD on 12/14/19 11:19 AM ddome [facility] [place] [address] , [place], [address], 12/13/2017 11:41:56 Result Notes Documentation Provider Name and Address Organization Details Recorded Time Xr, Shoulder, 2 Or More View : [facility] [address] [place] [address] Patient Name: SETH STORM Patient : [id number] Patient Ordering Provider: KIMBERLEE ANTOINE EXAM DATE: 12/13/2017 EXAM: XR RT SHOULDER COMPLETE RADIOGRAPHIC VIEWS: 3 COMPARISON: None. HISTORY: Right shoulder pain. FINDINGS: The bones of the shoulder are normal in alignment. There is no evidence of fracture. There is mild degenerative changes at the acromioclavicular joint and along the glenohumeral joint. The acromioclavicular and coracoclavicular spacing is normal. The visualized right ribs and right lung appears normal. IMPRESSION: 1. There are mild degenerative changes in the right shoulder. Interpreted By: Temo Minaya MD ERLEE ANTOINE MD [facility] [place], [address], [facility] 12/13/2017 11:41:56 Problems No Known Problems Procedures Surgical History Date Name Laterality Status Provider Name and Address Organization Details Recorded Time 8 Injection Joint/Bursa, Major completed KIMBERLEE ANTOINE MD [address] [place], [address], [facility] 12/13/2017 11:40:47 Remove tonsils and adenoids completed [facility] 12/13/2017 10:30:09 Removal of thyroid completed [facility] 12/13/2017 10:30:17 Imaging Results None recorded. Procedure Notes None recorded. Medical Equipment None Reported. Allergies Allergen ID Allergen Name Allergen Category Reaction Reaction Severity Criticality Documentation Date Start Date Code Code System Note Provider Name and Address Organization Details Recorded Time [id number] Joann-D medicatio n Not available Not available Not available 12/13/2017 [facility] 10:29:07 Medications Name Sig Start Date Stop Date Status Note LastModified by Organization Details LastModified Time lisinopril 10 mg tablet Take 1 tablet every day by oral route. active Not Available Not Available No t Available levothyroxine 150 mcg tablet active Not Available Not Availab le Not Available metoprolol succ 25 mg-hydrochlorot hiazide 12.5 mg tablet,ext.rel 24 hr Take 1 tablet every day by oral route. active Not Available Not Available No t Available Vitals Date Recorded Body height Body mass index (BMI) Body weight Systolic And Diastolic Provider Name and Address Organization Details Last Updated DateTime 12/13/2017 182.88 cm 21.7 kg/m2 54490.78 g 122/70 mm[Hg] Cristiblayne Alvarez [facility] 12/13/2017 10:35:43 Social History Question Answer Notes LastModified by Organizat ion Details LastModified Time Tobacco Smoking Status Never Smoker [facility] 12/13/2017 10:29:59 What Was The Date Of Your Most Recent Tobacco Screening? 12/13/2017 Information n ot available 08/01/2019 Sex: Unknown Functional Status None recorded. Mental Status None recorded. Family History Relationship Description Onset Age of this Age Resolved Age Notes LastModified by Organization Details LastModified Time Father No current problems or disability sla Not available 12/13 10:29:55 Mother No current problems or disability slaha Not available 12/13 10:29:55 Medical History Condition Response Diabetes N Arthritis Y Blood Thinners N Heart Conditions N Sleep Apnea N Anesthesia Complications N Liver Disease N Hypertension Y Kidney Disease N Past Encounters Encounter ID Performer Location Encounter Start Date Encounter Closed Date Diagnosis/Indication Diagnosis SNOMED-CT Code Diagnosis ICD10 Code Diagnosis IMO Codes Diagnosis Note [id number] KIMBERLEE ANTOINE MD [facility] [address] [place] [address] 12/13/2017 09:58:48 12/13/2017 13:07:31 Pain of shoulder region 31885242 M25.511 Mr Storm has findings consistent with adhesive capsulitis . I recommend a gentle motion program at home and he was given corticoste roid injection as described above. I discussed the natural history and treatment options for the frozen shoulder. Health Concerns Section Related Observation LastModified by Organization Detai ls LastModified Time None Recorded Concern Status LastModified by Organization Details LastModified Time None Recorded Advance Directives Directive None Recorded Payers Insurance Date Sequence Insurance Name Policy Number Policy Peraza Covered Member ID Peraza Member ID Guarantor Name 05/08/2020 1 [facility] ([facility] [id number] Seth Storm [id number] Seth Storm Notes Date Note Type Note Provider Name and Address Organization Details Recorded Time 12/13/2017 text/html Mr Seth Storm is a 57 year old right hand dominant gentleman who presents today for evaluation of right shoulder pain of 4 months duration. He denies prior history of difficulty in this area in the past and he denies prior history of trauma in recent or remote past to the right shoulder. He has pain in the front of the shoulder with playing his guitar. He denies significant pain at night in the shoulder or need for pain medications for his shoulder. He has experienced stiffness of the shoulder and pain with sudden motions of the shoulder. He has history of prior thyroid cancer and thyroidectomy. KIMBERLEE ANTOINE MD [facility] [place], [address], [facility] 12/22/2017 22:40:31
--- OUTSIDE RECORDS SUMMARY | 2025-03-17 08:43 | XMS_ITS | Clinical Summary ---
Author Organization [facility] Address [address] [place] [address] Care Team Providers Care Advanced Practice Nurse Psychotherapist Name Role Phone Nacho Davidson MD Primary Care Provider + Allergies Active Allergy Reactions Criticality Noted Date Comments Fexofenadine-Pseudoephed Er Other (See Comments) 07/02/2023 Enlarged prostate Atorvastatin Unknown - Low Severity Low 04/22/2022 Fexofenadine Unknown - Low Severity 04/22/2022 Nsaids Unknown - Low Severity 04/22/2022 Pseudoephedrine Unknown - Low Severity 04/22/2022 Rosuvastatin Other (See Comments) Medium 04/22/2022 Medications aspirin 81 MG oral suspension Take 81 mL by mouth 1 (One) Time. 1 Active Pitavastatin Calcium 4 MG tablet Take 1 tablet by mouth Daily. 1 Active ALPRAZolam (XANAX) 0.25 MG tablet Take 1 tablet by mouth Daily As Needed for Anxiety. Active vitamin B-12 (CYANOCOBALAMIN) 1000 MCG tablet Take 1 tablet by mouth Daily. Active nitroglycerin (NITROSTAT) 0.4 MG SL tablet 1 tablet. 1 Active ezetimibe (ZETIA) 10 MG tabletIndication s:Coronary artery disease involving tolowa dee-ni' coronary artery of tolowa dee-ni' heart without angina pectoris TAKE 1 TABLET BY MOUTH ONCE DAILY 90 tablet 1 5 Active amLODIPine (NORVASC) 5 MG tabletIndication s:Primary hypertension Take 1 tablet by mouth Daily. 90 tablet 1 5 Active lisinopril (PRINIVIL,ZESTRI L) 40 MG tabletIndication s:Primary hypertension Take 1 tablet by mouth Daily. 90 tablet 1 Active levothyroxine (SYNTHROID, LEVOTHROID) 112 MCG tablet Take 1 tablet by mouth Daily. 5 01/18/20 Active metoprolol succinate XL (TOPROL-XL) 25 MG 24 hr tablet Take 1 tablet by mouth Daily. 5 01/18/20 26 Active mupirocin (BACTROBAN) 2 % ointment Apply 1 Application topically to the appropriate area as directed 3 (Three) Times a Day. 15 g Active Active Problems Problem Noted Date Diagnosed Date Coronary artery disease invo lving tolowa dee-ni' coronary artery of tolowa dee-ni' heart without angina pectoris 11/02/2023 Primary hypertension 07/02/2023 Assessment & Plan (04/25/2024 8:46 AM EST): Hypertension is stable and controlled Continue current treatment regimen. Blood pressure will be reassessed in 6 months. Anxiety 07/02/2023 Palpitations 07/02/2023 Hypercholesterolemia 07/02/2023 Postoperative hypothyroidism 07/02/2023 Encounters Date Type Department Care Team Description 02/05/2025 Results Follow-Up [facility] [address] [place] [address] Nacho Davidson MD 02/04/2025 1:53 PM EDT - 02/04/2025 11:59 PM EDT Hospital Encounter [facility] [address] [facility] [address] [place] [address] Nacho Davidson MD New onset of headache in cancer patient; History of thyroid cancer; Cognitive changes; Brain fog Discharge Disposition: Home or Self Care 02/04/2025 Travel 02/02/2025 3:30 PM EDT Office Visit [facility] [address] [address] Nacho Davidson MD Medicare annual wellness visit, subsequent (Primary Dx) 02/02/2025 Travel 01/19/2025 3:00 PM EDT Office Visit [facility] [address] [address] Nacho Davidson MD New onset of headache in cancer patient (Primary Dx); History of thyroid cancer; Cognitive changes; Brain fog; Anxiety about health 01/19/2025 Travel from Last 3 Months Immunizations Immunization Administration Dates Next Due Fluzone High-Dose 65+YRS 03/14/2024 Influenza, Unspecified 04/14/2023 Pneumococcal Conjugate 20-Valent (PCV20) 024 Family History Medical History Relation Name Comments Hyperlipidemia Father Cholo Storm Mental illness Father Cholo Storm Bi Polar Relation Name Status Comments Father Cholo Storm Social History Tobacco Use Types Packs/Day Years Used Date Smoking Tobacco: Former Cigarettes 0.5 2 Q uit: 1982 Smokeless Tobacco: Never Tobacco Cessation:Counseling Given: Not Answered Alcohol Use Standard Drinks/Week Comments Never 0 (1 standard drink = 0.6 oz pur e alcohol) PHQ-2 Answer Date Recorded Patient Health Questionnaire-2 Score 0 02/02/2025 Sex and Gender Information Value Date Recorded Sex Assigned at Not on file Legal Sex Male 10:19 AM EST Gender Identity Not on file Sexual Orientation Not on file Last Filed Vital Signs Vital Sign Reading Time Taken Comments Blood Pressure 108/65 02/02/2025 3:07 PM EDT Pulse 65 02/02/2025 3:07 PM EDT Temperature 36.8 C (98.3 F) 02/02/2025 3:07 PM EDT Respiratory Rate 20 02/02/2025 3:07 PM EDT Oxygen Saturation 98% 02/02/2025 3:07 PM EDT Inhaled Oxygen Concentration - - Weight 68.5 kg (151 lb) 02/04/2025 1:57 PM EDT Height 182.9 cm (6') 02/02/2025 3:07 PM EDT Body Mass Index 20.48 02/02/2025 3:07 PM EDT Plan of Treatment Upcoming Encounters Date Type Department Care Team (Late st Contact Info) Description 02/05/2026 2:15 PM EDT Office Visit [facility] [address] [place] [address] Nacho Davidson MD Formerly named [facility] [place] [address] Health Maintenance Due Date Last Done Comments TDAP/TD VACCINES (1 - Tdap) 1977 COLOGUARD 2003 COLON CANCER SCREENING 5 YEA R SIGMOIDOSCOPY 2003 CT COLONOGRAPHY 2003 FECAL OCCULT BLOOD TEST 2003 FIT Testing (1 year) 2003 ZOSTER VACCINE (1 of 2) 01/29/2008 HEPATITIS C SCREENING 07/02/2023 LIPID PANEL 10/22/2024 10/23/2023 INFLUENZA VACCINE 01/12/2025 03/14/2024, 04/14/2023 COVID-19 Vaccine (2024-07 6 season) 2025 05/16/2021, 09/11/2020, 08/14/2020 ANNUAL WELLNESS VISIT 02/02/2026 02/02/2025 , 02/02/2025, 11/02/2023, Additional history exists COLONOSCOPY 06/24/2028 06/24/2018 COLORECTAL CANCER SCREENING 06/24/2028 Pneumococcal Vaccine 50+ Completed 11/02/2023 AAA SCREEN ONCE Completed 11/05/2023, 11/05/2023 Procedures Procedure Name Priority Date/Time Associated Diagnosis Comments MRI BRAIN WO CONTRAST Routine 02/04/2025 2:20 PM EDT New onset of headache in cancer patient History of thyroid cancer Cognitive changes Brain fog SCANNED - COLONOSCOPY 06/24/2018 from Last 3 Months or Most Recently Relevant to Health Maintenance Results * MRI Brain Without Contrast (02/04/2025 2:20 PM EDT) Anatomical Region Laterality Modality Head, Neck N/A Magnetic Resonan ce 02/04/2025 7:23 PM EDT Impressions 02/04/2025 7:25 PM EDT Impression: 1.No acute intracranial process identified. 2.Findings suggestive of mild chronic small vessel ischemic disease. Electronically Signed: Artie Ortega MD 02/04/2025 7:25 PM EDT Workstation ID: [id number] Narrative 02/04/2025 7:25 PM EDT MRI BRAIN [...] MD 02/04/2025 7:25 PM EDT Workstation ID: [id number] Nacho Davidson MD [facility] MRI ORDERABLES Final Result * SCANNED - COLONOSCOPY (06/24/2018) Nacho Davidson MD CHART REVIEW TABS Fin al Result from Last 3 Months or Most Recently Relevant to Health Maintenance Insurance MEDICARE A & B Member Subscriber Plan / Payer (Ef fective 2023-Present) Name:Seth Storm Member ID:[id number] Relation to Subscriber:Self Name:Seth Storm Subscriber ID:[id number] Payer ID:[id number] Group ID:Not on file Type:Not on file Address: [address] [employer] Care Teams Advanced Practice Nurse Psychotherapist Relationship Specialty Start Date End Date Nacho Davidson MD Formerly named [facility] [place] [address] PCP - General Family Medicine 07/02/23
--- OUTSIDE RECORDS SUMMARY | 2025-03-17 08:43 | XMS_ITS | Encounter Summary ---
[facility] [address] [place] [address] Care Team Providers Care Glue Spreader Name Role Phone Nacho Davidson MD Primary Care Provider + Encounter Details Date Type Department Care Team (Latest Contact Info) Description 01/19/2025 Travel Social History Tobacco Use Types Packs/Day Years [...] 02/05/2026 2:15 PM EDT Office Visit [facility] [address] [facility] [place] [address] Nacho Davidson MD [address] [address] documented as of this encounter Visit Diagnoses Not on filedocumented in this encounter Care Teams Glue Spreader Relationship Specialty Start Date End Date Nacho Davidson MD [address] [place] [address] PCP - General Family Medicine 07/02/23 documented as of this encounter
--- OUTSIDE RECORDS SUMMARY | 2025-03-17 08:43 | XMS_ITS | Encounter Summary ---
Author Organization [facility] Address [address] [place] [address] Care Team Providers Care Game Artist Name Role Phone Nacho Davidson MD Primary Care Provider [phone] Lisa Price AIR CARRIER INSPECTOR Unavailable [phone] Encounter Details Date Type Department Care Team (Late st Contact Info) Description 01/17/2025 Results Follow-Up [facility] Endocrinology [address] [place] [address] Jerilyn Cisse, AIR CARRIER INSPECTOR, KAIAWHINA KURA [place]A MAORI [address] [facility] [address] [place] [address] Social History Tobacco Use Types Packs/Day Years [...] [facility] [address] [facility]nd [place] [address] 12/19/2025 1:00 PM EDT Office Visit [facility] [address] [facility] [place] [address] Jerilyn Cisse APRN, [facility] [address] [phone] documented as of this encounter Visit Diagnoses Not on filedocumented in this encounter Additional Health Concerns Assessment Noted Time A fall risk assessment has been complete d for the patient 01/17/2025 12:25 PM EDT A Body Mass Index follow-up plan has been documented for the patient 02/22/2024 6:02 PM EDT documented as of this encounter Care Teams Game Artist Relationship Specialty Start Date End Date Nacho Davidson MD [address] [place] [address] PCP - General 10/25/20 Lisa Price APRN [address] [place] [address] Nurse Practitioner Medical Oncology 02/20/22 documented as of this encounter
--- OUTSIDE RECORDS SUMMARY | 2025-03-17 08:43 | XMS_ITS ---
Author Organization [facility] Address [address] 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 Past Treatment and Therapy Plans No past plan information found. Resolved Problems Problem Noted Date Diagnosed Date Resolved Date Medication management 02/22/20242024
--- OUTSIDE RECORDS SUMMARY | 2025-03-17 08:43 | XMS_ITS | Encounter Summary ---
[facility] [address] [place] [address] Care Team Providers Care Card Services Specialist Name Role Phone Nacho Davidson MD Primary Care Provider + Encounter Details Date Type Department Care Team (Late Contact Info) Description 02/05/2025 Results Follow-Up [facility] [address] [facility] [place] [address] Nacho Davidson MD [address] [place] [address] Social History Tobacco Use Types [...] Description 02/05/2026 2:15 PM EDT Office Visit [facility] [address] [place] [address] Nacho Davidson MD [address] [place] [address] documented as of this encounter Visit Diagnoses Not on filedocumented in this encounter Care Teams Card Services Specialist Relationship Specialty Start Date End Date Nacho Davidson MD [address] [place] [address] PCP - General Family Medicine 07/02/23 documented as of this encounter
--- OUTSIDE RECORDS SUMMARY | 2025-03-17 08:43 | XMS_ITS | Encounter Summary ---
Author Organization [facility] Address [address] [place] [address] Care Team Providers Care Pizza Maker Name Role Phone Nacho Davidson MD Primary Care Provider [phone] Lisa Price MEDICAL ADMINISTRATIVE ASSISTANT Unavailable [phone] Encounter Details Date Type Department Care Team (Latest Contact Info) Description 01/17/2025 Travel Social History Tobacco Use Types Packs/Day [...] [facility] [address] [facility] [place] [address] 12/19/2025 1:00 PM EDT Office Visit [facility] [address] [facility]nd [place] [address] Jerilyn Cisse APRN, CERAMIST [address] [facility] [address] [place] [phone] documented as of this encounter Visit Diagnoses Not on filedocumented in this encounter Additional Health Concerns Assessment Noted Time A fall risk assessment has been complete d for the patient 01/17/2025 12:25 PM EDT A Body Mass Index follow-up plan has been documented for the patient 02/22/2024 6:02 PM EDT documented as of this encounter Care Teams Pizza Maker Relationship Specialty Start Date End Date Nacho Davidson MD [address] [place] [address] PCP - General 10/25/20 Lisa Price APRN [address] [facility] [address] [place] [address] Nurse Practitioner Medical Oncology 02/20/22 documented as of this encounter
--- OUTSIDE RECORDS SUMMARY | 2025-03-17 08:43 | XMS_ITS | Clinical Summary ---
Author Organization [facility] Address [address] [place] [address] Care Team Providers Care Health Services Director Name Role Phone Nacho Davidson MD Primary Care Provider [phone] Lisa Price PATTERN KEEPER Unavailable [phone] Allergies Active Allergy Reactions Criticality Noted Date Comments Fexofenadine-Pseudoephed Er Unknown - Patient states they do not know rxn details Low 04/14/2006 Medications calcium carbonate-vitamin D (Os-[place] 500/200 D-3) 500-200 MG-UNIT tablet TAKE TABLET 2 TABLETS DAILY 3 Active EQ Aspirin Adult Low Dose 81 MG EC tablet 1 Active nitroglycerin (Nitrostat) 0.4 MG SL tablet 1 Active Pitavastatin Magnesium 4 MG tablet Take by mouth daily. Active ALPRAZolam (Xanax) 0.25 MG tablet Take 1 tablet (0.25 mg) by mouth 1 (one) time each day if needed. 1 Active ezetimibe (Zetia) 10 MG tablet Take 1 tablet (10 mg) by mouth 1 (one) time each day. Active amLODIPine (Norvasc) 5 MG tabletIndications :Essential (primary) hypertension Take 1 tablet (5 mg) by mouth 1 (one) time each day. 90 tablet 1 4 Active lisinopril 40 MG tabletIndications :Essential (primary) hypertension Take 1 tablet (40 mg) by mouth 1 (one) time each day. 90 tablet 1 4 Active levothyroxine (Synthroid, Levoxyl) 112 MCG tabletIndications :Papillary carcinoma, follicular variant Take 1 tablet by mouth daily. Dose reduction 90 tablet 3 5 01/18/20 26 Active metoprolol succinate XL (Toprol-XL) 25 MG 24 hr tabletIndications :Palpitations Take 1 tablet by mouth daily. Do not crush or chew. 90 tablet 3 5 01/18/20 26 Active Active Problems Problem Noted Date Diagnosed [...] of prostate 05/22/2013 Essential (primary) hypertension 07/12/2012 Resolved Problems Problem Noted Date Diagnosed Date Resolved Date Medication management 02/22/20242024 Encounters Date Type Department Care Team Description 01/17/2025 1:00 PM EDT Office Visit [facility] [address] [facility], [address]nd [place] [address] Jerilyn Cisse APRN, CHILD CARE CENTER ASSISTANT DIRECTOR Papillary carcinoma, follicular variant (Primary Dx); Postoperative hypothyroidism; Essential (primary) hypertension; Medication management; Palpitations 01/17/2025 12:30 PM EDT Clinical Support [facility] [address] [facility], [address] [place] [address] 01/17/2025 10:56 AM EDT - 01/17/2025 11:59 PM EDT Hospital Encounter [facility] Radiology [address] [place] [phone] Papillary carcinoma, follicular variant Discharge Disposition: Home or Self Care 01/17/2025 Results Follow-Up [facility] Endocrinology [address] [place] [address] Jerilyn Cisse APRN, CHILD CARE CENTER ASSISTANT DIRECTOR 01/17/2025 Results Follow-Up [facility] Endocrinology [address] [place] [phone] Jerilyn Cisse APRN, NEPTALI 01/17/2025 Travel from Last 3 Months Family History Medical History Relation Name Comments Bipolar disorder Father Hypertension Father Hypertension Mother Bipolar disorder Other Relation Name Status Comments Father Mother Other Social History Tobacco Use Types Packs/Day Years [...] file Not on file Not on file Last Filed Vital Signs [...] Mass Index 20.7 01/17/2025 12:22 PM EDT Plan of Treatment Upcoming Encounters Date Type Department Care Team (Late st Contact Info) Description 12/19/2025 12:30 PM EDT Clinical Support [facility] [address] [phone] 12/19/2025 1:00 PM EDT Office Visit [facility] [address] [facility], [address] [place] [phone] Jerilyn Cisse APRN, CHILD CARE CENTER ASSISTANT DIRECTOR [address] [facility] [address] [place] [address] Health Maintenance Due Date Last Done Comments [facility]-Hepatitis C Screening 1960 [facility]-Medicare Annual Wellness (AWV) 1960 [facility]-Infant/Child/Adol SDOH Screenings 1960 [facility]- SDOH Screenings 01/29/1976 [facility]-Adult SDOH Screenings 01/29/1976 [facility]-DTaP,Tdap,and Td Vaccine s (1 - Tdap) 1977 [facility]-Zoster Vaccines (1 of 2) 1977 CT Colonography 2003 Colonoscopy 2003 FIT-DNA 2003 FIT 2003 FOBT 2003 Sigmoidoscopy 2003 [facility]-Colorectal Cancer Screening 2003 [facility]-RSV Vaccine: 60+ Years o r (1 - Risk 60-74 years 1-dose series) 2018 [facility]-Depression Screening 04/24/2022 04/24/2021 [facility]-Abdominal Aortic Aneurys m (AAA) Screening 2023 [id number] Vaccine ( season) 2025 05/16/2021, 09/11/2020, 08/14/2020 [facility]-Influenza Vaccine (#1) 02/12/202503/14, 04/14/2023 [facility]-Pneumococcal Vaccine: 50 + Years Completed 11/02/2023 HPV Vaccines Aged Out No longer eligi ble based on patient's age to complete this topic [facility]-HIB Vaccines Aged Out No longer e ligible based on patient's age to complete this topic [facility]-Hepatitis A Vaccines Aged Out No longer eligible based on patient's age to complete this topic [facility]-IPV Vaccines Aged Out No longer e ligible based on patient's age to complete this topic [facility]-Rotavirus Vaccines Aged Out No lo nger eligible based on patient's age to complete this topic Procedures Procedure Name Priority Date/Time Associated Diagnosis Comments THYROGLOBULIN (INHOUSE- REFLEX ONLY) Routine 01/17/2025 12:30 PM EDT Papillary carcinoma, follicular variant THYROGLOBULIN ANTIBODY AND THYROGLOBULIN (NELL OR LC-MSMS) Routine 01/17/2025 12:30 PM EDT Papillary carcinoma, follicular variant TSH Routine 01/17/2025 12:30 PM EDT Papillary carcinoma, follicular variant FREE T4, PLASMA Routine 01/17/2025 12:30 PM EDT Papillary carcinoma, follicular variant US HEAD NECK SOFT TISSUE Routine 01/17/2025 11:36 AM EDT Papillary carcinoma, follicular variant from Last 3 Months Results * Thyroglobulin Antibody and Thyroglobulin (NELL or LC-MSMS) (01/17/2025 12:30 PM EDT) Thyroglobulin Antibody <1.0 <4.0 IU/mL 01/17/2025 3:59 PM EDT [facility] Blood Venous blood specimen / Unknown Venipuncture / Unknown 01/17/2025 12:30 PM EDT 01/17/2025 12:52 PM EDT Jerilyn Cisse APRN, CHILD CARE CENTER ASSISTANT DIRECTOR LAB BLOOD ORDERABLES Final Result [facility] [address] [place] [address] * Thyroglobulin (01/17/2025 12:30 PM EDT) Thyroglobulin (Inhouse) <0.1 <=31.8 ng/mL 01/17/2025 4:40 PM EDT [facility] Blood Venous blood specimen / Unknown Venipuncture / Unknown 01/17/2025 12:30 PM EDT 01/17/2025 12:52 PM EDT Narrative [facility] - 01/17/2025 4:40 PM EDT Performed by [employer] [place] 2nd generation TG chemiluminescent immunoassay. Results obtained with different test methods or kits cannot be used interchangeably. Jerilyn Cisse APRN, CHILD CARE CENTER ASSISTANT DIRECTOR LAB BLOOD ORDERABLES Final Result Performing Organization Address City/[facility]/[place] [address] * (ABNORMAL) Thyroid Stimulating Hormone, Plasma (01/17/2025 12:30 PM EDT) Thyroid Stimulating Hormone, Plasma 0.21(L) 0.40 - 4.20 uIU/mL 01/17/2025 3:31 PM EDT [facility] Blood Venous blood specimen / Unknown Venipuncture / Unknown 01/17/2025 12:30 PM EDT 01/17/2025 12:53 PM EDT Jerilyn Cisse APRN, CHILD CARE CENTER ASSISTANT DIRECTOR LAB BLOOD ORDERABLES Final Result Performing Organization Address [facility] [place] [place] [address] * Free T4, Plasma (01/17/2025 12:30 PM EDT) Free T4, Plasma 1.5 0.8 - 1.7 ng/dL 01/17/2025 3:31 PM EDT [facility] Blood Venous blood specimen / Unknown Venipuncture / Unknown 01/17/2025 12:30 PM EDT 01/17/2025 12:53 PM EDT Jerilyn Cisse APRN, CHILD CARE CENTER ASSISTANT DIRECTOR LAB BLOOD ORDERABLES Final Result Performing Organization Address City/[facility] [place] [address] * US Head Neck Soft Tissue (01/17/2025 [...] signing this report, I, the attending physician, attjesicaat I have personally reviewed the images/data for the aboveexamination(s) and agree with the final edited report. Drafted by Andrew Tinoco MD on 01/17/2025 2:53 PM Final report signed by Ekta Oliva MD on 01/17/2025 5:15 PM us Jerilyn Cisse APRN, CHILD CARE CENTER ASSISTANT DIRECTOR IMG US PROCEDURES Fi nal Result from Last [address] [place] [address] [place] [address] MEDICARE [facility] Care Teams Health Services Director Relationship Specialty Start Date End Date Nacho Davidson MD [address] [place] [address] PCP - General 10/25/20 Lisa Price APRN [address] [phone] Nurse Practitioner Medical Oncology 02/20/22
--- OUTSIDE RECORDS SUMMARY | 2025-03-17 08:43 | XMS_ITS | Encounter Summary ---
Author Organization [facility] Address [address] [place] [address] Care Team Providers Care Milk Bottler Name Role Phone Nacho Davidson MD Primary Care Provider [phone] Lisa Price EXCHANGE ADMINISTRATOR Unavailable [phone] Encounter Details Date Type Department Care Team (Late st Contact Info) Description 01/17/2025 Results [facility] Endocr[facility]ology [address] [place] [address] Jerilyn Cisse, EXCHANGE ADMINISTRATOR, JEWELRY TECHNICIAN [address] [facility] [address] [place] [address] Social History Tobacco Use Types [...] [facility] [address] [facility], [address]nd [place] [address] 12/19/2025 1:00 PM EDT Office Visit [facility] [address] [facility], [address]nd [place] [address] Jerilyn Cisse APRN, [facility] [address] [phone] documented as of this encounter Visit Diagnoses Not on filedocumented in this encounter Additional Health Concerns Assessment Noted Time A fall risk assessment has been complete d for the patient 01/17/2025 12:25 PM EDT A Body Mass Index follow-up plan has been documented for the patient 02/22/2024 6:02 PM EDT documented as of this encounter Care Teams Milk Bottler Relationship Specialty Start Date End Date Nacho Davidson MD [address] [place] [address] PCP - General 10/25/20 Lisa Price APRN [address] [place] [address] Nurse Practitioner Medical Oncology 02/20/22 documented as of this encounter
--- OUTSIDE RECORDS SUMMARY | 2025-03-17 08:43 | XMS_ITS | Encounter Summary ---
Author Organization [facility] Address [address] [place] [address] Care Team Providers Care Firer Tunnel Kiln Name Role Phone Nacho Davidson MD Primary Care Provider + Encounter Details Date Type Department Care Team (Latest Contact Info) Description 02/02/2025 Travel Social History Tobacco Use Types Packs/Day [...] documented as of this encounter Functional Status documented as of this encounter Plan of Treatment Upcoming Encounters Date Type Department Care Team (Late st Contact Info) Description 02/05/2026 2:15 PM EDT Office Visit [facility] FAMILY MEDICINE [address] [place] [place] [address] Nacho Davidson MD [address] [place] [address] documented as of this encounter Visit Diagnoses Not on filedocumented in this encounter Care Teams Firer Tunnel Kiln Relationship Specialty Start Date End Date Nacho Davidson MD [address] [place] [address] PCP - General Family Medicine 07/02/23 documented as of this encounter
--- OUTSIDE RECORDS SUMMARY | 2025-03-17 08:43 | XMS_ITS | Encounter Summary ---
Author Organization [facility] Address [address] [place] [id number] Care Team Providers Care Raftsman Name Role Phone Nacho Davidson MD Primary Care Provider Chaim Henriquez MD Unavailable [phone] Lisa Price CORPORATE DEVELOPMENT ASSOCIATE Unavailable [phone] Reason for Visit * Reason Comments Med Refill Encounter Details Date Type Department Care Team (Late Contact Info) Description 06/08/2022 Refill [facility] [address] [facility], [address] [place] [phone] Chaim Henriquez MD [address] [address] Social History Tobacco Use Types Packs/Day Years Used Date Smoking Tobacco: Former Smokeless Tobacco: Never Alcohol Use Standard Drinks/Week [...] Department Care Team (Late Contact Info) Description 12/19/2025 12:30 PM EDT Clinical Support [facility] [address] [facility], [address] [place] [phone] 12/19/2025 1:00 PM EDT Office Visit [facility] [address] [facility], [address] [place] [phone] Jerilyn Cisse APRN, [facility] [address] [phone] documented as of this encounter Visit Diagnoses Not on filedocumented in this encounter Additional Health Concerns Assessment Noted Time A fall risk assessment has been complete d for the patient 02/17/2022 10:52 AM EDT documented as of this encounter Care Teams Raftsman Relationship Specialty Start Date End Date Nacho Davidson MD [address] [place] [address] PCP - General 10/25/20 Chaim Henriquez MD [address] [address] Consulting Physician Endocrinology 02/20/22 01/06/24 Lisa Price APRN [address] [phone] Nurse Practitioner Medical Oncology 02/20/22 documented as of this encounter
--- OUTSIDE RECORDS SUMMARY | 2025-03-17 08:43 | XMS_ITS | Encounter Summary ---
[facility] Address [address] [place] [address] Care Team Providers Care Die Try Out Worker Name Role Phone Nacho Davidson MD Primary Care Provider + Encounter Details Date Type Department Care Team (Latest Contact Info) Description 02/04/2025 Travel Social History Tobacco Use Types Packs/Day [...] Description 02/05/2026 2:15 PM EDT Office Visit [facility] FAMILY MEDICINE [address] [facility] [place] [address] Nacho Davidson MD [address] [place] [address] documented as of this encounter Visit Diagnoses Not on filedocumented in this encounter Care Teams Die Try Out Worker Relationship Specialty Start Date End Date Nacho Davidson MD [address] [place] [address] PCP - General Family Medicine 07/02/23 documented as of this encounter
[2025-03-17 10:47] LABS: Free T4 (Free Thyroxine) 1.45 ng/dl (0.78-2.19)
[2025-03-17 11:00] LABS: Thyroid Stimulating Hormone 0.09 uIU/mL (0.465-4.68)
== END 2025-03-17 23:59 | disposition home or self-care (01) ==
LOC: LAB 08:40
PROVIDERS: PCP Family Medicine; Visit Provider Clinical Nurse Specialist Adult Health
DX: C73 Malignant neoplasm of thyroid gland (principal)
CPT/HCPCS: 36415; 84439; 84443

== ENCOUNTER 2025-05-22 15:12 | Outpatient (CLI) | payer MEDICARE, SELFPAY ==
[2025-05-22 16:45] LABS: Free T4 (Free Thyroxine) 1.23 ng/dl (0.78-2.19)
[2025-05-22 16:58] LABS: Thyroid Stimulating Hormone 0.41 uIU/mL (0.465-4.68)
== END 2025-05-22 23:59 | disposition home or self-care (01) ==
LOC: LAB 15:14
PROVIDERS: PCP Family Medicine; Visit Provider Clinical Nurse Specialist Adult Health
DX: C73 Malignant neoplasm of thyroid gland (principal)
CPT/HCPCS: 36415; 84439; 84443